=== PATIENT | female | born 1950 | race Caucasian/White ===

== ENCOUNTER 2016-09-07 08:39 | Emergency (ER) | payer MEDICARE, OTHER ==
[2016-09-07 08:59] VITALS: TEMP 96; O2SAT 100
--- NOTE | 2016-09-07 09:15 | RAD ---
EXAM DESCRIPTION: XR WRIST 3 OR MORE VIEWS CLINICAL HISTORY: fall, pain COMPARISON: None Available. TECHNIQUE: AP, LATERAL, AND OBLIQUE FINDINGS: Degenerative changes are observed in the metacarpal-carpal articulation of the 1st digit. Intercarpal arthritis is observed. Subchondral cyst formation is observed in the scaphoid. Radiocarpal arthritis is observed. radioulnar arthritis is also noted. An impacted fracture of the distal radial metaphysis is observed. There is some dorsal angulation of the distal fracture fragments. IMPRESSION: 1. An impacted dorsally angulated fracture of the distal radius is observed. 2. Severe degenerative changes are observed throughout the wrist. Electronically signed by: Erik Resendiz MD 09/07/2016 09:14
--- NOTE | 2016-09-07 09:38 | ED.PDOC ---
History of Present Illness - General Chief Complaint: Upper Extremity Injury Stated Complaint: left wrist pain Time Seen by Provider: 09/07/16 09:25 Source: patient, RN notes reviewed, Vital Signs reviewed Exam Limitations: no limitations - History of Present Illness Initial Comments: Patient is a 66 y/o female who was using a band to strengthen her left shoulder that was fractured in 03/2016. The band was not around door well, and she fell on her left side hurting her wrist and hip. Timing/Duration: 1 hour Severity: severe Improving Factors: immobilization Worsening Factors: movement Associated Symptoms: denies symptoms Allergies/Adverse Reactions: Allergies Morphine Adverse Reaction (Verified 09/07/16 09:00) causes heart racing Home Medications: Ambulatory Orders Alprazolam [Xanax] 0.5 mg PO QID #0 10/14/12 Kskzeqz-Zgvnbgeeuautt-Rusrfzou [Excedrin Migraine] 2 ea PO DAILY #0 10/14/12 Hubbsktzkw-Bjmhhpn-Spqkkjxy [Butal/ASA/Caff] 2 tab PO Q4H PRN #0 10/14/12 Dicyclomine HCl 20 mg PO TID #0 10/14/12 Estropipate [Ogen] 3 mg PO DAILY #0 10/14/12 Fluticasone-Salmeterol [Advair Diskus] 1 puff IN BID #0 10/14/12 Glucosamine-Chondroitin [Osteo Bi-Flex Regular Str] 2 tab PO DAILY #0 10/14/12 Paroxetine HCl [Paxil] 40 mg PO HS #0 10/14/12 Sumatriptan Succinate [Imitrex] 100 mg PO PRN PRN #0 10/14/12 Trazodone HCl 100 mg PO HS #0 10/14/12 Albuterol Sulfate Nebs [Proventil Nebs] 2.5 mg INH DAILY 04/05/16 Amitriptyline HCl 50 mg PO HS 04/05/16 Budesonide (Inhalation) [Budesonide] 0.25 mg IN PRN 04/05/16 Flunisolide (Nasal) [Flunisolide] 0.025 % NA DAILY 04/05/16 Folic Acid 5 mg PO DAILY 04/05/16 Hydrochlorothiazide 25 mg PO DAILY 04/05/16 Methotrexate Sodium [Methotrexate] 20 mg PO DAILY 04/05/16 Potassium 99 mg PO DAILY 04/05/16 Sucralfate Tab [Carafate Tab] 1 gm PO DAILY 04/05/16 Tramadol HCl 50 mg PO Q6H PRN #15 tab 09/07/16 Review of Systems - Review of Systems Constitutional: States: no symptoms reported EENTM: States: no symptoms reported Respiratory: States: no symptoms reported Cardiology: States: no symptoms reported Gastrointestinal/Abdominal: States: no symptoms reported Genitourinary: States: no symptoms reported Musculoskeletal: States: joint pain, joint swelling Skin: States: no symptoms reported Neurological: States: no symptoms reported Endocrine: States: no symptoms reported Hematologic/Lymphatic: States: no symptoms reported All other Systems: Reviewed and Negative Past Medical History (General) - Patient Medical History Hx Seizures: No Hx Stroke: No Hx Asthma: Yes Hx of COPD: No Hx Cardiac Disorders: No Hx Congestive Heart Failure: No Hx Pacemaker: No Hx Hypertension: Yes Hx Diabetes: No Hx MRSA: No Surgical History: other - Vaccination History Hx Tetanus, Diphtheria Vaccination: - unknonw Hx Influenza Vaccination: Yes Hx Pneumococcal Vaccination: Yes - Social History Hx Tobacco Use: No Hx Alcohol Use: No Hx Substance Use: No Hx Physical Abuse: No Hx Emotional Abuse: No - Activities of Daily Living Hospice Agency (if applicable):: None - Female History Patient is a Female of Child Bearing Age (10 -59 yrs old): No Patient : No Family Medical History - Family History Mother Family History: No Known Physical Exam - Physical Exam General Appearance: Alert, Frail, Obvious distress Eye Exam: bilateral normal Ears, Nose, Throat: normal ENT inspection Extremity: pelvis stable, other - L wrist-tender to palpation, mild swelling, decreased ROM. L hip-tender at greater trochanter. Neurologic: alert, normal mood/affect, oriented x 3 Skin Exam: normal color, warm/dry Progress - Results/Orders Results/Orders: 09/07/16 08:46 Temperature 96.0 F L Pulse Rate [ 61 pulse ox] Respiratory 18 Rate Blood Pressure 156/82 [Right Arm] O2 Sat by Pulse 100 Oximetry - EKG/XRAY/CT XRAY: Wrist - L Xray Comments: Angulated fracture of distal radius. CT Ordered: No CT Interpretation Call Back: No - Consult/PCP Time Called: 11:00 Consult/PCP: Dr. Gant Consult Reason/Comments: Splint wrist, follow up in his office tomorrow. - Additional EKG/XRAY/Consults XRAY #2: hip Comments: Left - no fracture Departure - Departure Clinical Impression: Distal radial fracture Qualifiers: Encounter type: initial encounter Fracture type: closed Fracture morphology: unspecified fracture morphology Laterality: left Qualifier Code: (S52.502A) Unspecified fracture of the lower end of left radius, initial encounter for closed fracture Fall from standing Qualifiers: Encounter type: initial encounter Qualifier Code: (W19.XXXA) Unspecified fall, initial encounter Time of Disposition: 11:06 Disposition: Discharge to Home or Self Care Condition: Fair Departure Forms: ED Discharge - Pt. Copy, Patient Portal Self Enrollment Instructions: Wrist Fracture, DI for Wrist Fracture Diet: resume usual diet Referrals: Mauricio Gant MD [Active Staff] - 09/08/16 9:00 am Prescriptions: Tramadol HCl 50 mg PO Q6H PRN #15 tab PRN Reason: Pain Home Medications: Ambulatory Orders Alprazolam [Xanax] 0.5 mg PO QID #0 10/14/12 Unrddpp-Pebvobiasujgz-Dlbvsvle [Excedrin Migraine] 2 ea PO DAILY #0 10/14/12 Zwsnzpwmpd-Yeoiquj-Wczfioml [Butal/ASA/Caff] 2 tab PO Q4H PRN #0 10/14/12 Dicyclomine HCl 20 mg PO TID #0 10/14/12 Estropipate [Ogen] 3 mg PO DAILY #0 10/14/12 Fluticasone-Salmeterol [Advair Diskus] 1 puff IN BID #0 10/14/12 Glucosamine-Chondroitin [Osteo Bi-Flex Regular Str] 2 tab PO DAILY #0 10/14/12 Paroxetine HCl [Paxil] 40 mg PO HS #0 10/14/12 Sumatriptan Succinate [Imitrex] 100 mg PO PRN PRN #0 10/14/12 Trazodone HCl 100 mg PO HS #0 10/14/12 Albuterol Sulfate Nebs [Proventil Nebs] 2.5 mg INH DAILY 04/05/16 Amitriptyline HCl 50 mg PO HS 04/05/16 Budesonide (Inhalation) [Budesonide] 0.25 mg IN PRN 04/05/16 Flunisolide (Nasal) [Flunisolide] 0.025 % NA DAILY 04/05/16 Folic Acid 5 mg PO DAILY 04/05/16 Hydrochlorothiazide 25 mg PO DAILY 04/05/16 Methotrexate Sodium [Methotrexate] 20 mg PO DAILY 04/05/16 Potassium 99 mg PO DAILY 04/05/16 Sucralfate Tab [Carafate Tab] 1 gm PO DAILY 04/05/16 Tramadol HCl 50 mg PO Q6H PRN #15 tab 09/07/16 Additional Instructions: Follow up in ED if symptoms worsen.
--- NOTE | 2016-09-07 10:08 | RAD ---
EXAM DESCRIPTION: XR HIP 2 OR MORE VIEWS CLINICAL HISTORY: 66 y/o F, L hip pain s/p fall - osteoporosis COMPARISON: None TECHNIQUE: AP and frog leg lateral views of the left hip FINDINGS: Two-view left hip shows no fracture or bone lesion. There is no joint space abnormality observed. IMPRESSION: 1. Normal study Electronically signed by: Tree Conteh MD 09/07/2016 10:07
[2016-09-07] MEDS ORDERED: fentaNYL CITRATE INJ 50 MCG/ML AMP IM ONE (11:01)
[2016-09-07 11:50] VITALS: BP 144/65
== END 2016-09-07 11:45 | disposition home or self-care (01) ==
LOC: ER 08:39
DX: S52.502A Unspecified fracture of the lower end of left radius, initial encounter for closed fracture (principal); J45.909 Unspecified asthma, uncomplicated; I10 Essential (primary) hypertension; Z79.82 Long term (current) use of aspirin; Z88.6 Allergy status to analgesic agent; Z79.899 Other long term (current) drug therapy; W01.0XXA Fall on same level from slipping, tripping and stumbling without subsequent striking against object, initial encounter; Y93.B9 Activity, other involving muscle strengthening exercises
CPT/HCPCS: 73110; 73502; J3010

== ENCOUNTER → 2016-09-08 | Outpatient (CLI) | payer MEDICARE, OTHER ==
--- NOTE | 2016-09-08 11:44 | RAD ---
EXAM DESCRIPTION: XR WRIST 3 OR MORE VIEWS CLINICAL HISTORY: 66 y/o ,F, CLOSED FX OF DISTAL LEFT WRIST COMPARISON: September 07, 2016 IMPRESSION: Three views left wrist. Comminuted distal radial fracture again noted. The fracture fragments are appropriately aligned. Degenerative change of the radiocarpal joint and thumb base. Electronically signed by: Bienvenido Lechuga MD 09/08/2016 11:42
== END ==
LOC: RAD 10:12
PROVIDERS: ATTEND Orthopaedic Surgery
DX: S52.502A Unspecified fracture of the lower end of left radius, initial encounter for closed fracture (principal)

== ENCOUNTER → 2016-09-11 | Outpatient (CLI) | payer MEDICARE, OTHER ==
--- NOTE | 2016-09-11 09:36 | RAD ---
EXAM DESCRIPTION: XR WRIST 3 OR MORE VIEWS CLINICAL HISTORY: 66 y/o ,F, CLOSED FRACTURE OF DISTAL END RADIUS COMPARISON: September 08, 2016 IMPRESSION: Three views of the left wrist. Distal radial metaphyseal fracture again noted. Fracture fragments are in stable alignment. Degenerative change of the base of thumb noted. Electronically signed by: Bienvenido Lechuga MD 09/11/2016 09:34
== END ==
LOC: RAD 08:50
PROVIDERS: ATTEND Orthopaedic Surgery
DX: S52.502A Unspecified fracture of the lower end of left radius, initial encounter for closed fracture (principal)

== ENCOUNTER → 2016-09-15 | Outpatient (CLI) | payer MEDICARE, OTHER ==
--- NOTE | 2016-09-26 17:14 | RAD ---
EXAM DESCRIPTION: XR WRIST 3 OR MORE VIEWS CLINICAL HISTORY: 66 y/o ,F, FX COMPARISON: September 11, 2016 in September 07, 2016 IMPRESSION: Three views of the left wrist. Distal radial metaphyseal fracture again noted. The fracture line is less apparent on today's study compatible with increased healing. Fracture fragments are in stable alignment. Degenerative change of the base of thumb and radiocarpal joint noted. Electronically signed by: Bienvenido Lechuga MD 09/15/2016 10:54
== END | disposition home or self-care (01) ==
LOC: RAD 08:43
PROVIDERS: ATTEND Orthopaedic Surgery
DX: S52.502A Unspecified fracture of the lower end of left radius, initial encounter for closed fracture (principal)

== ENCOUNTER → 2016-09-28 | Outpatient (CLI) | payer MEDICARE, OTHER ==
--- NOTE | 2016-09-28 09:29 | RAD ---
EXAM DESCRIPTION: XR WRIST 3 OR MORE VIEWS CLINICAL HISTORY: 66 y/o ,F, CLOSED FX OF DISTAL END OF RADIUS COMPARISON: September 15, 2016 IMPRESSION: The sagittally oriented fracture through the ulnar aspect of the distal radial epiphysis is again noted. The fracture extends into the radiocarpal joint. Increased callus formation about the fracture site is noted compatible with mild increased healing. Degenerative change of the radiocarpal joint noted Electronically signed by: Bienvenido Lechuga MD 09/28/2016 09:29
--- NOTE | 2016-09-28 10:38 | RAD ---
EXAM DESCRIPTION: XR WRIST 3 OR MORE VIEWS CLINICAL HISTORY: 66 y/o ,F, POST CAST REMOVAL COMPARISON: Radiograph from same day. IMPRESSION: Three views of left wrist after cast removal. The sagittally oriented lucency through the medial aspect of the distal radial epiphysis with extension into the articular surface of the radiocarpal joint is stable in appearance. Degenerative change of the radiocarpal joint, ulnocarpal joint and thumb base noted Electronically signed by: Bienvenido Lechuga MD 09/28/2016 10:36
== END | disposition home or self-care (01) ==
LOC: RAD 08:39
PROVIDERS: ATTEND Orthopaedic Surgery
DX: S52.502A Unspecified fracture of the lower end of left radius, initial encounter for closed fracture (principal)

== ENCOUNTER → 2016-10-05 | Outpatient (CLI) | payer MEDICARE, OTHER ==
--- NOTE | 2016-10-06 11:33 | RAD ---
Frontal, lateral, and oblique views of the left wrist. Indication:FRACTURE OF LOWER END OF RADIUS Comparison: September 28, 2016. Impression: Comminuted fracture of the distal radial metaphysis and epiphysis with central/ ulnar intra-articular extension is redemonstrated with stable fracture alignment. The fracture is ununited with no significant callus formation. Slight dorsal angulation distal fracture fragments. Positive ulnar variance with moderate to severe distal radial joint osteoarthritis and changes of ulnar impaction. Cystic change scaphoid waist. Moderate osteoarthritis 1st CMC joint. Osteopenia. If this is a new finding, DEXA scan recommended as well as evaluation for possible osteoporosis treatment. Electronically signed by: Jonathan Garza MD 10/06/2016 11:31
== END ==
LOC: RAD 08:00
PROVIDERS: ATTEND Orthopaedic Surgery
DX: S52.502D Unspecified fracture of the lower end of left radius, subsequent encounter for closed fracture with routine healing (principal)

== ENCOUNTER → 2016-10-19 | Outpatient (CLI) | payer MEDICARE, OTHER ==
--- NOTE | 2016-10-19 11:19 | RAD ---
EXAM DESCRIPTION: Wrist,Left 3 Views CLINICAL HISTORY: 66 yearsFemale, FX DISTAL END OF RADIUS COMPARISON: October 05, 2016 IMPRESSION: Increased sclerosis about the distal radial fracture compatible with subtle, but increased healing. Alignment is stable. Degenerative change of the radiocarpal and ulnocarpal joints with subchondral cystic changes noted within the distal ulna and scaphoid. Significant degenerative change of the base of thumb. Electronically signed by: Bienvenido Lechuga MD 10/19/2016 11:16 AM SHAREPOINT ADMINISTRATOR
== END | disposition home or self-care (01) ==
LOC: RAD 09:37
PROVIDERS: ATTEND Orthopaedic Surgery
DX: S52.502D Unspecified fracture of the lower end of left radius, subsequent encounter for closed fracture with routine healing (principal)

== ENCOUNTER → 2016-11-09 | Outpatient (CLI) | payer MEDICARE, OTHER ==
--- NOTE | 2016-11-09 16:34 | RAD ---
EXAM DESCRIPTION: Wrist,Left 3 Views CLINICAL HISTORY: 66 years Female, FX IMPRESSION: Today's exam was compared to October 19, 2016. The sclerotic impaction fracture of the distal radius is again noted. The fracture line is slightly less apparent which is compatible with continued healing. Largest cyst noted within the mid pole of the scaphoid, unchanged. Severe degenerative change of the base of thumb, unchanged. Osteopenia. Electronically signed by: Bienvenido Lechuga MD 11/09/2016 4:34 PM CDT
== END | disposition home or self-care (01) ==
LOC: RAD 09:20
PROVIDERS: ATTEND Orthopaedic Surgery
DX: S52.502D Unspecified fracture of the lower end of left radius, subsequent encounter for closed fracture with routine healing (principal)

== ENCOUNTER → 2017-02-28 | Outpatient (CLI) | payer MEDICARE, OTHER ==
--- NOTE | 2017-02-28 11:29 | MAM ---
EXAM DESCRIPTION: 3D Diagnostic, Bilateral CLINICAL HISTORY: 67 yearsFemale6 MONTH FOLLOW UP. Postmenopausal. Right breast cyst aspiration. Cyst and nodule left breast on the prior diagnostic workup. COMPARISON: Left breast targeted ultrasound on this visit. Left breast targeted ultrasound and digital diagnostic evaluation 05/25/2016. Bilateral digital screening examination 05/27/2016. Reports from prior examinations also reviewed. TECHNIQUE: Bilateral digital CC and MLO and LM projection full-field images, 3-D tomosynthesis digital mammographic technique. Also bilateral synthesized CC/ MLO/ LM full-field images. CAD not utilized. FINDINGS: The breast parenchymal density pattern is: Extremely dense breast tissue, which lowers the sensitivity of mammography. No skin thickening or nipple retraction in the upper outer quadrant where a nodule was previously suspected, no mammographic finding on incidental sinus stored, oblique image. Tiny calcification in the left breast. Possible nodule as a mammographic finding correlating with a cyst at the 100 clock position, 4 cm from the nipple, best seen on the CC 3-D image. Oval-shaped nodule with mostly well circumscribed borders and central radiolucency in the superior lateral, posterior third right breast on 3-D, tomosynthesis, approximately 1 cm diameter. Not seen on the CC 3-D tomosynthesis. Obscured by dense fibroglandular tissue on the study in March 2016. ULTRASOUND:Again noted in the 100 clock position of the left breast is a mostly anechoic cyst with slightly thickened guzman measuring 4 x 4 0.2 mm. Parallel orientation. Posterior enhancement features. Cyst is surrounded by heterogeneous fibroglandular tissues. No adjacent cysts or discrete solid mass. No parenchymal edema In the upper inner quadrant of the left breast at the 1000 clock position, is diffuse heterogeneous fat and fibroglandular tissues. No discrete or irregular solid mass, no cyst. No large calcifications or parenchymal edema.. No focal, stellate mass or density, focal asymmetry , and no suspicious microcalcifications bilaterally. IMPRESSION: BI-RADS CATEGORY: 3 - PROBABLY BENIGN FINDING - Short Interval Follow-Up Suggested FOLLOW-UP: Short-interval (6-month) follow-up diagnostic digital left breast mammography and surveillance breast ultrasound. There is continued clinical concern or patient concern, consider follow-up bilateral breast MRI scan with gadolinium IV contrast. Written communication explaining the results and follow-up will be mailed to the patient and referring care provider. Electronically signed by: Adriel Mae MD 02/28/2017 11:28 AM CDT Workstation: [id number]
--- NOTE | 2017-02-28 12:10 | US ---
EXAM DESCRIPTION: Breast, left CLINICAL HISTORY: 67 yearsFemale6 MONTH FOLLOW UP COMPARISON: Diagnostic digital mammogram of the left breast on this visit. Targeted left breast ultrasound 05/15/2016. TECHNIQUE: Transcutaneous scanning of the upper inner and outer quadrants of the left breast utilizing two-dimensional and Doppler modes. Scanning performed by the color technician and Dr. Mae. FINDINGS: Again noted in the 100 clock position of the left breast is a mostly anechoic cyst with slightly thickened guzman measuring 4 x 4 0.2 mm. Parallel orientation. Posterior enhancement features. Cyst is surrounded by heterogeneous fibroglandular tissues. No adjacent cysts or discrete solid mass. No parenchymal edema. In the upper inner quadrant of the left breast at the 1000 clock position, is diffuse heterogeneous fat and fibroglandular tissues. No discrete or irregular solid mass, no cyst. No large calcifications or parenchymal edema. IMPRESSION: BI-RADS CATEGORY: 3 - PROBABLY BENIGN FINDING - Short Interval Follow-Up Suggested Please refer to bilateral digital diagnostic examination with 3-D tomosynthesis on this visit. Written communication explaining the results and follow-up will be mailed to the patient and referring care provider. The findings and the follow-up plan were reviewed in person with the patient after the examination. Electronically signed by: Adriel Mae MD 02/28/2017 12:09 PM CDT Workstation: [id number]
== END ==
LOC: MAMMO 08:25
PROVIDERS: ATTEND Family Medicine
DX: R92.8 Other abnormal and inconclusive findings on diagnostic imaging of breast (principal)
CPT/HCPCS: 76641; G0279

== ENCOUNTER → 2017-03-28 | Outpatient (CLI) | payer MEDICARE, OTHER | LOC: GMAH 16:30 | PROVIDERS: ATTEND Family Medicine | DX: N30.00 Acute cystitis without hematuria (principal) ==

== ENCOUNTER 2017-10-26 12:56 | Inpatient (IN) | payer MEDICARE, OTHER ==
--- NOTE | 2017-10-26 12:57 | HP ---
SUPERVISING PHYSICIAN: Charles Hernández M.D. CHIEF COMPLAINT: Shortness of breath. HISTORY OF PRESENT ILLNESS: This is a 67 year-old female patient who has been seen in her primary care physician's office approximately 4 times in the last 6 weeks due to an exacerbation of her asthma. She has been on p.o. antibiotics times 2 and p.o. steroids times 3, and has progressively worsened over the last 6 days. She also had increased use of her nebulizer treatments as well as continued use of her routine Advair. She was seen in the office today and her oxygen saturations were at 83%. She was extremely fatigued after her respiratory rate was 24, blood pressure 172/84 and pulse rate 86. She was afebrile. Chest x-ray was essentially clear with normal heart size. CBC in the office showed a WBC of 10.6 with hemoglobin 11.9, hematocrit 35.4, neutrophils 72.[address] Diallo called me for admission to the hospital. PAST MEDICAL HISTORY: 1. Asthma. 2. Seasonal allergies. 3. Spastic colon. 4. Osteoarthritis. 5. Gastroesophageal reflux disease. 6. Rheumatoid arthritis. PAST SURGICAL HISTORY: 1. Hysterectomy. 2. Bladder suspension. 3. Bilateral knee replacements. 4. Bilateral rotator cuff repair surgeries. OUTPATIENT MEDICATIONS: Per the EMR and awaiting verification. ALLERGIES: MORPHINE SULFATE. SHE DOES HAVE AN ADVERSE REACTION TO CODEINE IT MAKES HER "CRAZY." FAMILY HISTORY: Positive for myocardial infarction, cancer and cerebral aneurysm. SOCIAL HISTORY: The patient is . She lives in [place]. She denies any tobacco, ETOH or illicit drug use. REVIEW OF SYSTEMS: GENERAL: Positive for fatigue. Negative for chills or fever or weight changes. RESPIRATORY: Positive for dyspnea and cough. Negative for wheezing. CARDIOVASCULAR: Negative for chest pains, palpitations or tachycardia. GASTROINTESTINAL: Negative for constipation, diarrhea, nausea or vomiting. MUSCULOSKELETAL: Positive for chronic back pain and chronic neck pain. GENITOURINARY: Negative for hematuria, nocturia or dysuria. INTEGUMENT: Negative for rashes or lesions. NEUROLOGIC: Negative for headaches, seizures or dizziness. PHYSICAL EXAMINATION: VITAL SIGNS: She is afebrile, heart rate 71, blood pressure 139/84, respiratory rate 17, O2 sat is 100% on room air, but she was tachypneic at her physician's office with a respiratory rate of 24 and she was hypoxic with an O2 sat of 83%. GENERAL: This is a 67 year-old female patient who is sitting up in her hospital bed. She is in mild respiratory distress. HEENT: Normocephalic and atraumatic. Pupils are equal and reactive. Oropharynx is clear. NECK: Supple without mass. There is no jugular venous distention. RESPIRATORY: Diminished breath sounds throughout otherwise no rhonchi or wheezing noted. She is tachypneic and speaks in short phrases of 3 to 4 words at a time. CARDIOVASCULAR: Regular rate and rhythm. GASTROINTESTINAL: Abdomen is soft, nondistended, non-tender. Bowel sounds are positive. EXTREMITIES: No cyanosis, clubbing or edema. NEUROLOGIC: She is awake, alert and oriented times three. LABORATORY: WBCs are 9.7 with hemoglobin 12.6, hematocrit 35.9. Urinalysis is essentially within normal limits. We are still awaiting her metabolic panel. All other labs and films are per the EMR as well as the History of Present Illness. ASSESSMENT: 1. Acute exacerbation of asthma with failed outpatient therapy. The patient has failed 2 rounds of oral antibiotics and 3 rounds of oral steroids. 2. Hypoxemic with an O2 saturation of 83% as well as tachypneic with respiratory rate of 24. 3. Gastroesophageal reflux disease. 4. Rheumatoid arthritis. 5. Anxiety. 6. Chronic neck and back pain. PLAN: We will admit the patient to the hospital. She will be started on routine and p.r.n. breathing treatments. I have also given her some IV steroids and we will taper those off as she clinically improves. Rocephin has been started as antibiotic therapy. I will give her 1 liter of fluids, start her on some Mucinex as well as give her Tramadol for pain. Her home medications will be restarted. I will order routine labs for in the morning. I also have done sputum and blood cultures to rule out any infectious process. She will have good pulmonary hygiene. I have encouraged frequent ambulation in the halls as tolerated. We will continue to monitor the patient closely and follow as needed. Dr. Hernández is the collaborating physician available for consultation. #[id number] [facility] SYSTEMAshley
[2017-10-26] MEDS ORDERED: SODIUM CHLORIDE 0.9% (FLUSH) 10 ML SYG IV PRN (12:59)
[2017-10-26] MEDS ORDERED: IV SET AND CAP CHANGE INJ INJ SCH (13:00)
[2017-10-26] MEDS: ALBUTEROL SULFATE 2.5 MG/3 ML VIAL NEB SCH ×4 (13:01→20:15)
[2017-10-26] MEDS ORDERED: ALBUTEROL SULFATE 2.5 MG/3 ML VIAL NEB ONE (13:04)
[2017-10-26] MEDS ORDERED: methylPREDNISolone SODIUM SUC 125 MG/2 ML VIAL IV ONE (13:05)
[2017-10-26] MEDS ORDERED: PANTOPRAZOLE SODIUM IV 40 MG VIAL IV SCH (13:30)
[2017-10-26] MEDS ORDERED: cefTRIAXone SODIUM 1 GM VIAL ONE (14:02)
[2017-10-26] MEDS ORDERED: SODIUM CHL 0.9% 50ML MIN-BAG+ 50 ML IVPB ONE (14:02)
[2017-10-26] MEDS: cefTRIAXone SODIUM 1 GM in SODIUM CHL 0.9% 50ML MIN-BAG+ 50 ML IVPB SCH (14:13)
[2017-10-26] MEDS ORDERED: traMADol HCL 50 MG TAB PO PRN (15:51)
[2017-10-26] MEDS ORDERED: SODIUM CHLORIDE 0.9% 1000ML 1,000 ML IVS ONE (15:53)
[2017-10-26] MEDS ORDERED: ALPRAZolam 0.5 MG TAB PO ONE (16:00)
[2017-10-26] MEDS ORDERED: TEMAZEPAM 15 MG CAP PO PRN (16:01)
[2017-10-26] MEDS ORDERED: BENZONATATE PERLES 100 MG CAP PO PRN (16:01)
[2017-10-26] MEDS ORDERED: PANTOPRAZOLE SODIUM TAB 40 MG PO ONE (19:27)
[2017-10-26] MEDS ORDERED: methylPREDNISolone SODIUM SUC 125 MG/2 ML VIAL ONE (19:27)
[2017-10-26] MEDS: guaiFENesin ER TAB 600 MG TAB PO SCH (20:08)
[2017-10-26] MEDS: SODIUM CHLORIDE 0.9% (FLUSH) 10 ML SYG IV SCH (20:09)
[2017-10-26] MEDS ORDERED: PARoxetine HCL 20 MG TAB PO ONE (20:53)
[2017-10-26] MEDS ORDERED: AMITRIPTYLINE HCL 25 MG TAB ONE (20:53)
[2017-10-26] MEDS: SUCRALFATE 1 GM TAB PO SCH (21:00)
[2017-10-26] MEDS: DICYCLOMINE HCL 20 MG TAB PO SCH (21:00)
[2017-10-26] MEDS ORDERED: AMITRIPTYLINE HCL 25 MG TAB PO SCH (21:00)
[2017-10-26] MEDS: PARoxetine HCL 20 MG TAB PO SCH (21:01)
[2017-10-26] MEDS: ALPRAZolam 0.5 MG TAB PO SCH (21:02)
[2017-10-26] MEDS: traZODone HCL 100 MG TAB PO SCH (21:02)
[2017-10-26] MEDS: FLUTICASONE/SALMETEROL 250/50 14 PUFF/17 GM INH INH SCH (22:19)
[2017-10-26] MEDS: ALBUTEROL SULFATE 2.5 MG/3 ML VIAL NEB PRN (23:00)
[2017-10-26] MEDS: methylPREDNISolone SODIUM SUC 125 MG/2 ML VIAL IV SCH (23:31)
[2017-10-27] MEDS: ALBUTEROL SULFATE 2.5 MG/3 ML VIAL NEB PRN (05:20)
[2017-10-27] MEDS: methylPREDNISolone SODIUM SUC 125 MG/2 ML VIAL IV SCH ×2 (05:48→11:46)
[2017-10-27] MEDS: PANTOPRAZOLE SODIUM TAB 40 MG PO SCH (06:03)
[2017-10-27] MEDS: ALBUTEROL SULFATE 2.5 MG/3 ML VIAL NEB SCH ×4 (07:21→19:35)
[2017-10-27] MEDS: FLUTICASONE/SALMETEROL 250/50 14 PUFF/17 GM INH INH SCH ×3 (07:21→20:46)
--- NOTE | 2017-10-27 07:46 | RAD ---
EXAM: Two view chest. INDICATION: Asthma. COMPARISON: Chest x-ray: 03/30/2011. FINDINGS: Cardiac silhouette: Unremarkable. Rosy: Unremarkable. Lobar consolidation: None. Pleural effusion: None. Pneumothorax: None. Other: None. Bones: Unremarkable. Other: None. IMPRESSION: 1. No acute cardiopulmonary process. Electronically signed by: Mode Figueroa MD 10/27/2017 7:45 AM CDT Workstation: [id number]
[2017-10-27] MEDS: guaiFENesin ER TAB 600 MG TAB PO SCH ×2 (08:38→21:02)
[2017-10-27] MEDS: SUCRALFATE 1 GM TAB PO SCH ×3 (08:38→21:00)
[2017-10-27] MEDS: ALPRAZolam 0.5 MG TAB PO SCH ×4 (08:38→21:05)
[2017-10-27] MEDS: DICYCLOMINE HCL 20 MG TAB PO SCH ×2 (08:38→21:00)
[2017-10-27] MEDS: hydroCHLOROthiazide 25 MG TAB PO SCH (08:38)
[2017-10-27] MEDS: SODIUM CHLORIDE 0.9% (FLUSH) 10 ML SYG IV SCH ×2 (08:39→21:02)
[2017-10-27] MEDS: ESTROPIPATE PO SCH (09:02)
[2017-10-27] MEDS ORDERED: ALPRAZolam 0.25 MG TAB PO PRN (09:09)
[2017-10-27] MEDS ORDERED: ASPIRIN/ACETAMINOPHEN/CAFFEINE 1 EA TAB PO PRN (11:34)
[2017-10-27] MEDS: BUDESONIDE NEBS 0.25 MG/2 ML INH INH SCH ×2 (11:37→19:35)
[2017-10-27] MEDS ORDERED: cefTRIAXone SODIUM 1 GM VIAL ONE (12:35)
[2017-10-27] MEDS ORDERED: SODIUM CHL 0.9% 50ML MIN-BAG+ 50 ML IVPB ONE (12:35)
[2017-10-27] MEDS: ENOXAPARIN SODIUM 40 MG/0.4 ML SYG SUBCU SCH (13:30)
[2017-10-27] MEDS: cefTRIAXone SODIUM 1 GM in SODIUM CHL 0.9% 50ML MIN-BAG+ 50 ML IVPB SCH (13:33)
--- NOTE | 2017-10-27 14:35 | PN ---
DATE: 10/27/17 SUPERVISING PHYSICIAN: Charles Hernández M.D. SUBJECTIVE: The patient is sitting up in her hospital bed doing a breathing treatment. She continues to feel very short of breath, although she is starting to cough up some thick sputum. She did not sleep very well last night but she had given the wrong dosages of her home medications and those have been corrected. OBJECTIVE: VITAL SIGNS: She is afebrile, heart rate 77, blood pressure 115.61, respiratory rate 17, O2 sat is 100% on 2 liters nasal cannula. RESPIRATORY: A few scattered rhonchi throughout, somewhat diminished at the bases. She does have some expiratory wheezing in the right upper lung field. CARDIAC: Regular rate and rhythm. GASTROINTESTINAL: Abdomen is soft, nondistended, non-tender. Bowel sounds are positive. NEUROLOGIC: She is awake, alert and oriented times three. LABORATORY: Sodium 134, potassium 3.8, chloride 100, carbon dioxide 24, BUN 14 , creatinine 0.42, glucose is slightly elevated at 156. Serum osmolality 271.9. Liver enzymes are within normal limits. WBCs are 7.5 with hemoglobin 12.7, hematocrit 36.8, platelets 343, neutrophils 93.7. Preliminary sputum culture shows normal tressa at 24 hours. Preliminary blood cultures are negative to date. RADIOLOGY: Chest x-ray shows no acute cardiopulmonary processes. All other labs and films have been reviewed via the EMR. ASSESSMENT: 1. Acute exacerbation of asthma with failed outpatient therapy. The patient has failed 2 rounds of oral antibiotics and 3 rounds of oral steroids. 2. Hypoxemic with an O2 saturation of 83% as well as tachypneic with respiratory rate of 24. 3. Gastroesophageal reflux disease. 4. Rheumatoid arthritis. 5. Anxiety. 6. Chronic neck and back pain. PLAN: We will continue present supportive care. Will hold on lab for in the morning as that has mostly stabilized. I am slowly titrating down her IV steroids. She will continue on her Rocephin and we will monitor her cultures. I have added Lovenox for DVT prophylaxis. We will watch her closely clinically as she is starting to walk in the hallways. She is slowly improving at this time. Will monitor closely and follow as needed. Dr. Hernández is the collaborating physician available for consultation. #[id number] [facility]
[2017-10-27] MEDS: methylPREDNISolone SODIUM SUC 40 MG/ML VIAL IV SCH (17:08)
[2017-10-27] MEDS: AMITRIPTYLINE HCL 25 MG TAB PO SCH (21:01)
[2017-10-27] MEDS: traZODone HCL 100 MG TAB PO SCH (21:01)
[2017-10-27] MEDS: PARoxetine HCL 20 MG TAB PO SCH (21:01)
[2017-10-28] MEDS: methylPREDNISolone SODIUM SUC 40 MG/ML VIAL IV SCH ×2 (00:24→05:54)
[2017-10-28] MEDS: PANTOPRAZOLE SODIUM TAB 40 MG PO SCH (05:55)
[2017-10-28] MEDS: ALBUTEROL SULFATE 2.5 MG/3 ML VIAL NEB SCH ×4 (08:03→20:16)
[2017-10-28] MEDS: BUDESONIDE NEBS 0.25 MG/2 ML INH INH SCH ×2 (08:03→20:16)
[2017-10-28] MEDS: FLUTICASONE/SALMETEROL 250/50 14 PUFF/17 GM INH INH SCH ×2 (08:03→20:16)
[2017-10-28] MEDS: DICYCLOMINE HCL 20 MG TAB PO SCH ×2 (08:10→20:54)
[2017-10-28] MEDS: hydroCHLOROthiazide 25 MG TAB PO SCH (08:10)
[2017-10-28] MEDS: ALPRAZolam 0.5 MG TAB PO SCH ×4 (08:10→20:54)
[2017-10-28] MEDS: SODIUM CHLORIDE 0.9% (FLUSH) 10 ML SYG IV SCH ×2 (08:10→21:06)
[2017-10-28] MEDS: SUCRALFATE 1 GM TAB PO SCH ×3 (08:10→20:53)
[2017-10-28] MEDS: guaiFENesin ER TAB 600 MG TAB PO SCH (08:10)
[2017-10-28] MEDS: ENOXAPARIN SODIUM 40 MG/0.4 ML SYG SUBCU SCH (08:10)
[2017-10-28] MEDS: ESTROPIPATE PO SCH (08:40)
[2017-10-28] MEDS: guaiFENesin 100 MG/5 ML 10 ML UD PO SCH ×2 (09:33→20:53)
[2017-10-28] MEDS ORDERED: cefTRIAXone SODIUM 1 GM VIAL ONE (10:33)
[2017-10-28] MEDS ORDERED: SODIUM CHL 0.9% 50ML MIN-BAG+ 50 ML IVPB ONE (10:33)
[2017-10-28] MEDS ORDERED: FLUCONAZOLE 100 MG TAB PO ONE (10:54)
[2017-10-28] MEDS: SENNOSIDES 8.6 MG TAB PO SCH ×2 (11:15→21:05)
--- NOTE | 2017-10-28 12:17 | PN ---
DATE: 10/28/17 SUPERVISING PHYSICIAN: Charles Hernández M.D. SUBJECTIVE: The patient is sitting up in her chair in her hospital room. Continues complaints of mild shortness of breath but she has walked in the halls and it is improving. She also complained of some tiredness which she knows that it is most likely due to the steroids. She also said that she is somewhat slightly constipated and requested Senokot. Otherwise denies chest pain, nausea, vomiting or wheezing. OBJECTIVE: VITAL SIGNS: She is afebrile, heart rate 70, blood pressure 120/71, respiratory rate 20, O2 sat is 99% on room air. RESPIRATORY: Essentially clear to auscultation bilaterally. No wheezing or rhonchi noted. CARDIAC: Regular rate and rhythm. GASTROINTESTINAL: Abdomen is soft, nondistended, non-tender. Bowel sounds are positive. NEUROLOGIC: She is awake, alert and oriented times three. LABORATORY: WBCs are 7.5 with hemoglobin 12.7, hematocrit 36.8, platelet count 342, neutrophils 93.7. Sodium 134, potassium 3.8, chloride 100, carbon dioxide 24, BUN 14, creatinine 0.42. Serum osmolality 271.9, random blood sugar 156. Final sputum culture shows light growth of budding yeast. Preliminary blood cultures show no growth after 24 hours. All other labs and films have been reviewed via the EMR. ASSESSMENT: 1. Acute exacerbation of asthma with failed outpatient therapy. The patient has failed 2 rounds of oral antibiotics and 3 rounds of oral steroids. 2. Hypoxemic with an O2 saturation of 83% as well as tachypnea with respiratory rate of 24 at her physician's office on date of admission. 3. Question of Candidiasis in the sputum with sputum culture showing a light growth of budding yeast. 4. Gastroesophageal reflux disease. 5. Rheumatoid arthritis. 6. Anxiety. 7. Chronic neck and back pain. PLAN: We will continue present supportive care. I have ordered Senokot for her constipation as well as discontinued her IV steroids. She will start on oral prednisone in the morning. I have given her 1 dose of Diflucan. I will hold on lab and chest x-ray as they have stabilized. If she clinically improves , she can be discharged tomorrow or the next day. Otherwise we will continue to monitor her closely and followup as needed. Dr. Hernández is the collaborating physician available for consultation. [facility][id number] [facility]
[2017-10-28] MEDS: cefTRIAXone SODIUM 1 GM in SODIUM CHL 0.9% 50ML MIN-BAG+ 50 ML IVPB SCH (13:22)
[2017-10-28] MEDS: AMITRIPTYLINE HCL 25 MG TAB PO SCH (20:53)
[2017-10-28] MEDS: traZODone HCL 100 MG TAB PO SCH (20:53)
[2017-10-28] MEDS: PARoxetine HCL 20 MG TAB PO SCH (20:54)
[2017-10-29] MEDS: ALBUTEROL SULFATE 2.5 MG/3 ML VIAL NEB PRN (04:30)
[2017-10-29] MEDS: PANTOPRAZOLE SODIUM TAB 40 MG PO SCH (06:16)
[2017-10-29] MEDS: FLUTICASONE/SALMETEROL 250/50 14 PUFF/17 GM INH INH SCH (08:16)
[2017-10-29] MEDS: ALBUTEROL SULFATE 2.5 MG/3 ML VIAL NEB SCH (08:16)
[2017-10-29] MEDS: SUCRALFATE 1 GM TAB PO SCH (08:52)
[2017-10-29] MEDS: ALPRAZolam 0.5 MG TAB PO SCH (08:52)
[2017-10-29] MEDS: ENOXAPARIN SODIUM 40 MG/0.4 ML SYG SUBCU SCH (08:52)
[2017-10-29] MEDS: DICYCLOMINE HCL 20 MG TAB PO SCH (08:52)
[2017-10-29] MEDS: hydroCHLOROthiazide 25 MG TAB PO SCH (08:52)
[2017-10-29] MEDS: guaiFENesin 100 MG/5 ML 10 ML UD PO SCH (08:52)
[2017-10-29] MEDS: SENNOSIDES 8.6 MG TAB PO SCH (08:52)
[2017-10-29] MEDS: SODIUM CHLORIDE 0.9% (FLUSH) 10 ML SYG IV SCH (08:53)
[2017-10-29] MEDS ORDERED: predniSONE 20 MG TAB PO SCH (09:00)
[2017-10-29] MEDS: ESTROPIPATE PO SCH (09:06)
[2017-10-29] MEDS: BUDESONIDE NEBS 0.25 MG/2 ML INH INH SCH (09:41)
[2017-10-29 09:53] VITALS: BP 116/69; TEMP 96.7; O2SAT 100
--- NOTE | 2017-11-01 09:54 | DS ---
SUPERVISING PHYSICIAN: Blair Judge MD DISCHARGE DIAGNOSIS: 1. Acute exacerbation of asthma with failed outpatient therapy and 2 rounds of oral antibiotics and 3 rounds of oral steroids, showing improvement with treatment prior to discharge. 2. Hypoxemic with an O2 saturation of 83% as well as tachypnea with respiratory rate of 24 at her physician's office on date of admission, contributing to #1. 3. Question of Candidiasis in the sputum with sputum culture showing a light growth of budding yeast. 4. Gastroesophageal reflux disease. 5. Rheumatoid arthritis. 6. Anxiety. 7. Chronic neck and back pain. REASON FOR HOSPITALIZATION: Ms. Hamlin is a 67-year-old female patient who had been seen in her primary care physician's office approximately 4 times in the last 6 weeks due to an exacerbation of her asthma. She had been on p.o. antibiotics times 2 and p.o. steroids times 3, and has progressively worsened over the last 6 days prior to admission. She also had increased use of her nebulizer treatments as well as continued use of her routine Advair. She was seen in the office on date of admission and her oxygen saturations were at 83%. She was extremely fatigued after her respiratory rate was 24, blood pressure 172/84 and pulse rate 86. She was afebrile. Chest x-ray was essentially clear with normal heart size. CBC initially showed a white count of 10.4 after which she was admitted to the hospital for exacerbation of chronic obstructive pulmonary disease. LABORATORY: White count on admission was 9,700, at discharge was 7,500. Hemoglobin at discharge was 12.7, hematocrit 36.8, platelet count 342,000. Differential did show a left shift. Chemistries on admission showed potassium 3.7 and at discharge 3.8. Sodium was low at 130, but improved prior to discharge at 134. BUN 14, creatinine 0.42. Liver enzymes were all within normal limits. Urinalysis was within normal limits. MICROBIOLOGY: She had two sets of blood cultures that were negative at 5 days. Her final sputum culture report showed just light budding yeast. RADIOLOGY: Chest x-ray after admission per radiologic interpretation of two- view chest showed no acute cardiopulmonary process. HOSPITAL COURSE: Ms. Hamlin was admitted on 10/26/17 as noted above for exacerbation fo chronic obstructive pulmonary disease. She was started on aggressive pulmonary hygiene, given Solu-Medrol breathing treatments and parenteral antibiotics to include Rocephin. She was able to slowly taper off steroids and was showing good improvement prior to discharge and clinically improved well enough to continue with outpatient treatment plan. PLAN: Ms. Hamlin was discharged on 10/29/17 with instructions to have close clinical followup with her primary care provider, Dr. Diallo, as scheduled in 2 weeks or sooner. She was to resume home medications as instructed. She was to take new prescriptions as directed and avoid known allergens to prevent recurrence of exacerbation of her asthma. She was to return to the hospital for any concerning symptoms. At discharge, diet was usual diet. Activity increase as tolerated. MEDICATIONS AT DISCHARGE: 1. Tessalon Perles 100 mg tablets, she can take 200 mg 3 times a day as needed for cough. 2. Omnicef 300 mg twice daily for 7 days. 3. Medrol Dosepak tapering, take as directed. She was encouraged to call Dr. Diallo's should she have worsening of her symptoms and if need be, concerns for possibly needing a longer maintenance dose of her prednisone. At discharge, her condition was stable and improved. #[id number] [facility]
[2017-11-02] MEDS ORDERED: METHOTREXATE SODIUM 20 MG PO SCH (09:00)
== END 2017-10-29 11:19 | disposition home or self-care (01) | DRG 202 ==
LOC: OBSVTOIN 12:56 → MS 12:56
PROVIDERS: ADMIT Nurse Practitioner Acute Care; ATTEND Nurse Practitioner Family
DX: J45.901 Unspecified asthma with (acute) exacerbation (principal); B37.89 Other sites of candidiasis; J30.9 Allergic rhinitis, unspecified; M19.90 Unspecified osteoarthritis, unspecified site; K21.9 Gastro-esophageal reflux disease without esophagitis; M06.9 Rheumatoid arthritis, unspecified; K58.9 Irritable bowel syndrome, unspecified; Z96.653 Presence of artificial knee joint, bilateral; G89.29 Other chronic pain; M54.9 Dorsalgia, unspecified; M54.2 Cervicalgia; R09.02 Hypoxemia; F41.9 Anxiety disorder, unspecified; K59.00 Constipation, unspecified; Z88.5 Allergy status to narcotic agent

== ENCOUNTER 2017-11-08 13:50 | Inpatient (IN) | payer MEDICARE, OTHER ==
--- NOTE | 2017-11-08 14:14 | HP ---
HISTORY OF PRESENT ILLNESS: This 67 year-old white female is admitted to the hospital as a direct admission from Dr. Diallo's office. She has been getting steadily sicker for the last 2 months and has required at least one hospital stay as well as several clinic visits because of shortness of breath an asthma symptoms. Her last serious episode of illness related to her lungs was over 4 years ago. She was most recently in the hospital and was discharged after 3 days about 10 days ago. Subsequently she has been followed-up with repeat treatments with antibiotics and steroid tapering doses with slight improvement noted, but then worsening symptoms again. She usually gets worse when she returns home. Her last hospital stay dates from October 26 until October 29, or 10 days ago, and required IV corticosteroids and antibiotics and bronchodilator treatments until she was safe to be able to go home. She had documented hypoxia and required placing on home oxygen as well. She came back to the clinic today and Dr. Diallo ordered a chest x-ray which showed a left lower lobe infiltrate according to his interpretation and she was referred to the hospital for more vigorous treatment because of failed outpatient therapy. Her white count was fairly normal at 9,000. She is on home oxygen at 2 liters per minute. She had a saturation into the 80s when she ambulated on room air at her last hospital stay. No significant fever and chills. She has had some weight gain because of the corticosteroids. She has recently been up at the [facility] taking care of her mother and may have been exposed to other illnesses there in the waiting rooms, etc. She generally feels very tight in her breathing and no longer wheezes, but still feels terrible with a yellowish sputum being produced. She is admitted to the hospital to try to treat to prevent the illness from getting worse and having failed outpatient therapy requires parenteral antibiotics and corticosteroid administration with vigorous pulmonary hygiene and bronchodilation. PAST MEDICAL HISTORY: 1. Chronic asthma. 2. Seasonal allergies. 3. Irritable bowel syndrome. 4. Osteoarthritis. 5. Gastroesophageal reflux disease. 6. Rheumatoid arthritis. PAST SURGICAL HISTORY: 1. Hysterectomy. 2. Bladder suspension. 3. Both knee replacements. 4. Bilateral rotator cuff repair surgeries. CURRENT MEDICATIONS: Please refer to nurses' notes for a list of verified home medications. ALLERGIES: ATROVENT WHICH MADE HER BREATHING WORSE WELL GRASSES AND TREES WELL MORPHINE WHICH MAKES HER CRAZY. FAMILY HISTORY: Positive for heart disease, cancer and cerebral aneurysms. SOCIAL HISTORY: The patient is . She lives in [place]. She does not smoke and has worked in our hospital in the past, now retired. REVIEW OF SYSTEMS: She has gained some weight but no significant fever or chills. HEENT: No hearing or vision disturbances. LUNGS: Significant shortness of breath with chronic cough with yellow sputum. No hemoptysis. Tightness in her chest. CARDIOVASCULAR: No significant chest pains or palpitations. ABDOMEN: No nausea, vomiting or diarrhea, but her appetite has been decreased. GENITOURINARY: No burning. EXTREMITIES: Some slight edema present. NEUROLOGIC: No focal weakness but she generally feels a little weaker than usual because of the prolonged illness that she is experiencing. PHYSICAL EXAMINATION: VITAL SIGNS: Afebrile, pulse 72, blood pressure 129/76, respirations 22 and noticeably dyspneic with room air saturation 96%. Weight 62.8 kilos with bed scale. GENERAL: The patient is awake and alert. She is able to speak in sentences but does have some noticeable shortness of breath, having to stop in order to take a breath to complete the sentence. Coloration is fairly good. She is on oxygen at this time which she has been using at home as well. HEENT: Within normal limits. NECK: Supple. No carotid bruits. CHEST: Lungs have diminished breath sounds with some expiratory slowing. No significant wheezing evident, but is noticeably tight with inhalation and exhalation efforts. CARDIOVASCULAR: No significant palpitations. She does have a previously noted systolic murmur. ABDOMEN: Generally soft with some mild treating in the right lower quadrant. Good bowel tones. No organomegaly or masses noted. EXTREMITIES: Well formed with a trace of edema with SCDs in place. NEUROLOGIC: No focal neurological deficits. The patient is awake, alert and oriented and communicative, though somewhat dyspneic during the exam. LABORATORY: White count is 9,000 in the clinic. Other chemistries are pending. Urine is pending. Blood cultures are pending. Sputum culture is pending. RADIOLOGY: Chest x-ray performed by Dr. Diallo and interpreted by him reveal a left lower lobe infiltrative process suggesting an early pneumonia with close clinical followup suggested with vigorous treatment to be initiated. Repeat evaluation with a two view chest in the morning for maximum clarity and resolution. ASSESSMENT: 1. Acute left lower lobe infiltrate with radiograph in the clinic with the patient being ill now for almost 2 months requiring repeat hospitalization and clinic visit to get some degree of relief of her significant tightness in her breathing. 2. History of bronchial asthma with an acute exacerbation requiring pulmonary hygiene, bronchodilation and antiinflammatory treatment courses. She will also be given some corticosteroid inhalation therapies. 3. History of irritable bowel syndrome. 4. Chronic osteoarthritis with history of rheumatoid arthritis. 5. History of gastroesophageal reflux disease. 6. History of seasonal asthma. PLAN: The patient is admitted for medication nebulizers with Xopenex and Decadron 1 mg to be given twice daily for the next 2 days. Await blood cultures. Started on Levaquin and azithromycin antibiotics, different than the Rocephin that she received on last hospital stay. Will do some ambulation studies to check on oxygen requirements. Treat DVT prophylaxis with Lovenox and SCDs, and increasing activity level as possible. Repeat chest x-ray in the morning. Continue with Solu-Medrol 40 mg for the next 2 days twice daily, then change to prednisone. Await sputum cultures and blood culture results. Close followup and support in progress. Followup with Dr. Diallo when clinically stable at the time of discharge. #[id number] [facility]
[2017-11-08] MEDS ORDERED: IPRATROPIUM/ALBUTEROL 3 ML VIAL NEB ONE (14:38)
[2017-11-08] MEDS ORDERED: ACETAMINOPHEN 325 MG TAB PO PRN (14:52)
[2017-11-08] MEDS ORDERED: HYDROcodone 5MG/APAP 325MG 1 EA TAB PO PRN (14:52)
[2017-11-08] MEDS ORDERED: DEXAMETHASONE INJ 1 MG, SODIUM CHLORIDE 0.9% NEB 3 ML NEB SCH ×2 (15:30)
[2017-11-08] MEDS: FLUCONAZOLE 100 MG TAB PO SCH (15:32)
[2017-11-08] MEDS: AZITHROMYCIN 250 MG TAB PO SCH (15:32)
[2017-11-08] MEDS: methylPREDNISolone SODIUM SUC 40 MG/ML VIAL IV SCH ×2 (15:32→23:18)
[2017-11-08] MEDS: IV SET AND CAP CHANGE INJ INJ SCH (15:33)
[2017-11-08] MEDS: SODIUM CHLORIDE 0.9% 1000ML 1,000 ML IVS PRN (15:33)
[2017-11-08] MEDS ORDERED: DEXAMETHASONE INJ 4 MG/ML VIAL ONE (16:29)
[2017-11-08] MEDS: LEVALBUTEROL NEBS 1.25 MG/3 ML VIAL INH SCH (16:38)
[2017-11-08] MEDS: ENOXAPARIN SODIUM 40 MG/0.4 ML SYG SUBCU SCH (17:37)
[2017-11-08] MEDS ORDERED: CAFFEINE PO PRN (17:50)
[2017-11-08] MEDS ORDERED: ASPIRIN PO PRN (17:50)
[2017-11-08] MEDS ORDERED: BUTALBITAL PO PRN (17:50)
[2017-11-08] MEDS ORDERED: OMEPRAZOLE CAP 20 MG CAP ONE (19:03)
[2017-11-08] MEDS ORDERED: AMITRIPTYLINE HCL 25 MG TAB ONE (19:03)
[2017-11-08] MEDS ORDERED: PARoxetine HCL 20 MG TAB PO ONE (19:04)
[2017-11-08] MEDS ORDERED: CALCIUM CARBONATE (ANTACID) 500 MG CHEWABLE TAB PO PRN (20:25)
[2017-11-08] MEDS: traZODone HCL 100 MG TAB PO SCH (20:36)
[2017-11-08] MEDS: ALPRAZolam 0.5 MG TAB PO SCH (20:36)
[2017-11-08] MEDS ORDERED: NON-FORMULARY MEDICATION 1 EA MIS (Amitriptyline Hcl [Amitriptyline Hcl] 150 MG) PO SCH (21:00)
[2017-11-08] MEDS ORDERED: PAROXETINE HCL 40 MG PO SCH (21:00)
[2017-11-08] MEDS ORDERED: SUCRALFATE 1 GM TAB PO SCH (21:00)
[2017-11-08] MEDS: LEVALBUTEROL NEBS 1.25 MG/3 ML VIAL INH PRN (21:01)
[2017-11-08] MEDS ORDERED: levoFLOXacin 750MG IV 750 MG in PREMIX BAG 1 BAG IVPB ONE (22:00)
[2017-11-09] MEDS: LEVALBUTEROL NEBS 1.25 MG/3 ML VIAL INH SCH ×4 (00:34→23:05)
[2017-11-09] MEDS: SODIUM CHLORIDE 0.9% 1000ML 1,000 ML IVS PRN ×2 (04:15→18:03)
[2017-11-09] MEDS: OMEPRAZOLE CAP 20 MG CAP PO SCH (06:38)
--- NOTE | 2017-11-09 06:45 | RAD ---
Chest 2 view on 11/09/2017 CLINICAL INDICATION: Pneumonia COMPARISON: 10/27/2017 FINDINGS: Heart is upper limits normal for size. Hilar and mediastinal contours are within normal limits. Mild chronic interstitial changes are noted. The lungs are otherwise clear. IMPRESSION: No acute disease. Electronically signed by: Alfie Sosa 11/09/2017 6:43 AM CDT
[2017-11-09] MEDS ORDERED: SODIUM CHLORIDE 0.9% NEB 3 ML VIAL ONE ×3 (07:31→23:13)
[2017-11-09] MEDS ORDERED: DEXAMETHASONE INJ 4 MG/ML VIAL ONE ×3 (07:31→23:13)
[2017-11-09] MEDS: methylPREDNISolone SODIUM SUC 40 MG/ML VIAL IV SCH ×3 (07:42→23:47)
[2017-11-09] MEDS: DEXAMETHASONE INJ 1 MG, SODIUM CHLORIDE 0.9% NEB 3 ML NEB SCH ×4 (07:53→23:05)
[2017-11-09] MEDS: FLUTICASONE/SALMETEROL 250/50 14 PUFF/17 GM INH INH SCH ×4 (08:11→19:40)
[2017-11-09] MEDS ORDERED: predniSONE 20 MG TAB ONE (08:22)
[2017-11-09] MEDS ORDERED: SUCRALFATE 1 GM TAB PO ONE (08:22)
[2017-11-09] MEDS: ALPRAZolam 0.5 MG TAB PO SCH ×3 (08:37→21:00)
[2017-11-09] MEDS: POTASSIUM CHLORIDE 20 MEQ TAB PO SCH (08:37)
[2017-11-09] MEDS: FLUCONAZOLE 100 MG TAB PO SCH (08:37)
[2017-11-09] MEDS: FUROSEMIDE INJ 20 MG/2 ML VIAL IV SCH ×2 (08:38→16:57)
[2017-11-09] MEDS: ENOXAPARIN SODIUM 40 MG/0.4 ML SYG SUBCU SCH (08:39)
[2017-11-09] MEDS ORDERED: NON-FORMULARY MEDICATION 1 EA MIS (Potassium Chloride [Potassium Chloride Er] 10 MEQ) PO SCH (09:00)
[2017-11-09] MEDS: MAGNESIUM HYDROXIDE 30 ML UD PO PRN (09:04)
[2017-11-09] MEDS: SUCRALFATE 1 GM TAB PO SCH ×2 (11:05→16:57)
[2017-11-09] MEDS: LEVALBUTEROL NEBS 1.25 MG/3 ML VIAL INH PRN (13:15)
--- NOTE | 2017-11-09 13:22 | PN ---
DATE: 11/09/17 SUBJECTIVE: Today is the first day after admission to the hospital for a left lower lobe infiltrative pneumonia noted in the clinic of Dr. Diallo yesterday. She was started on antibiotics and pulmonary hygiene. In many ways, she says her breathing is better today. She has not been very active and is going to be encouraged to increase activity level as we reevaluate and await ambulation study results of her pulmonary functionality. Appetite is improving. Still somewhat weak. OBJECTIVE: VITAL SIGNS: Afebrile. Pulse 88. Blood pressure 123/77. Pulse oximetry up to 100% on 2 liters nasal cannula. Encouraged to decrease this to maintain saturations in the low 90s. LUNGS: Some clearing of some of the rales. HEART: Regular. ABDOMEN: Soft. LABORATORY: White count 7,200, 95% neutrophils, hemoglobin 11.8. Chemistries show potassium is up to 3.5, but sodium is down from 131 to 127. Decreased serum osmolality to 257 is noted. Influenza A/B negative. Blood cultures negative. Sputum culture requires further incubation and pending. Chest x-ray today shows no specific evidence of an infiltrative process as previously noted , possibly suggesting some clearing with continued followup and short-term treatment to continue. ASSESSMENT: 1. Acute left lower lobe pneumonia noted in outpatient clinic, probably community acquired with cultures negative, being treated with Levaquin and azithromycin, showing some clinical improvement and radiograph improvement as well. 2. Hyponatremia, possibly related to fairly significant free water overload with some sodium loss from hydrochlorothiazide administration chronically and with a history of polydipsia. Encouraged to decrease her fluid intake. 3. History of bronchial asthma with an acute exacerbation requiring pulmonary hygiene, bronchodilation and antiinflammatory administration including some corticosteroid inhalation treatments. 4. History of irritable bowel syndrome. 5. Chronic osteoarthritis with history of rheumatoid arthritis component. 6. History of gastroesophageal reflux disease. 7. History of seasonal asthma. PLAN: The patient will be encouraged to increase activity level. Await ambulation studies for provocative pulmonary functionality as well as requirements for oxygen if need be. Continue DVT prophylaxis. The patient placed on fluid restrictions and given some low dose loop diuretics in an effort to prevent further worsening of the hyponatremia. Increased activity encouraged. Reevaluation in the morning. #[id number] [facility]
[2017-11-09] MEDS: AZITHROMYCIN 250 MG TAB PO SCH (15:00)
[2017-11-09] MEDS ORDERED: levoFLOXacin 500MG IV 100 ML IVPB ONE (20:09)
[2017-11-09] MEDS ORDERED: AMITRIPTYLINE HCL 10 MG TAB ONE (20:25)
[2017-11-09] MEDS: AMITRIPTYLINE HCL 25 MG TAB PO SCH (21:00)
[2017-11-09] MEDS: PARoxetine HCL 20 MG TAB PO SCH (21:00)
[2017-11-09] MEDS: traZODone HCL 100 MG TAB PO SCH (21:00)
[2017-11-09] MEDS: levoFLOXacin 500MG IV 500 MG in PREMIX BAG 1 BAG IVPB SCH (22:25)
[2017-11-10] MEDS: LEVALBUTEROL NEBS 1.25 MG/3 ML VIAL INH PRN (05:34)
[2017-11-10] MEDS: SUCRALFATE 1 GM TAB PO SCH ×3 (06:04→17:07)
[2017-11-10] MEDS: OMEPRAZOLE CAP 20 MG CAP PO SCH (06:04)
[2017-11-10] MEDS: FLUCONAZOLE 100 MG TAB PO SCH (08:07)
[2017-11-10] MEDS: POTASSIUM CHLORIDE 20 MEQ TAB PO SCH (08:07)
[2017-11-10] MEDS: ALPRAZolam 0.5 MG TAB PO SCH ×3 (08:07→21:00)
[2017-11-10] MEDS: predniSONE 20 MG TAB PO SCH (08:07)
[2017-11-10] MEDS: ENOXAPARIN SODIUM 40 MG/0.4 ML SYG SUBCU SCH (08:08)
[2017-11-10] MEDS: FUROSEMIDE INJ 20 MG/2 ML VIAL IV SCH ×2 (08:08→17:07)
[2017-11-10] MEDS: SODIUM CHLORIDE 0.9% 1000ML 1,000 ML IVS PRN (08:22)
[2017-11-10] MEDS ORDERED: SODIUM CHLORIDE 0.9% NEB 3 ML VIAL ONE (08:33)
[2017-11-10] MEDS ORDERED: DEXAMETHASONE INJ 4 MG/ML VIAL ONE (08:33)
[2017-11-10] MEDS: FLUTICASONE/SALMETEROL 250/50 14 PUFF/17 GM INH INH SCH (08:46)
[2017-11-10] MEDS: LEVALBUTEROL NEBS 1.25 MG/3 ML VIAL INH SCH ×3 (08:46→23:08)
[2017-11-10] MEDS: DEXAMETHASONE INJ 1 MG, SODIUM CHLORIDE 0.9% NEB 3 ML NEB SCH ×2 (08:46)
[2017-11-10] MEDS ORDERED: predniSONE 20 MG TAB PO ONE (10:31)
[2017-11-10] MEDS: ARFORMOTEROL TARTRATE 15 MCG/2 ML NEB NEB SCH ×2 (10:51→20:19)
[2017-11-10] MEDS: AZITHROMYCIN 250 MG TAB PO SCH (15:12)
--- NOTE | 2017-11-10 16:24 | PN ---
DATE: [id number] SUPERVISING PHYSICIAN: Charles Hernández M.D. SUBJECTIVE: The patient continues to feel a little bit of shortness of breath today. She continues to feel weak but has been afebrile. OBJECTIVE: VITAL SIGNS: temperature 98.2, pulse 67, blood pressure 132/77, respirations 18, satting 100% on nasal cannula at rest on 2 liters. I's and O' s show a negative balance of 311 with 1989 in, 5100 out. Weight is 60.6 kg. CHEST: Lungs were clear to auscultation without any notable wheezing or rales. HEART: Regular rate and rhythm. ABDOMEN: Soft, non-tender. Positive bowel sounds. EXTREMITIES: No clubbing, cyanosis or edema. NEUROLOGIC: She is alert and oriented times three. LABORATORY: White count 9,000, hemoglobin 11.1, hematocrit 32.5, platelet count 290,000. Differential does show a continued left shift. Chemistries show normal electrolytes today with potassium 4.2, sodium is up to 138 from 127 , calcium 7.9, BUN 13, creatinine .58. MICROBIOLOGY: Sputum culture is pending. Blood culture is pending. RADIOLOGY: No additional radiographic studies were completed today. ASSESSMENT: 1. Acute left lower lobe pneumonia likely community acquired with sputum cultures pending with the patient being on Levaquin and azithromycin continuing to show some improvement. 2. Hyponatremia with questionable fluid overload with some sodium loss due to hydrochlorothiazide administration chronically as well as a history of polydipsia showing improvement with fluid restrictions and gentle diuresis on loop diuretic. 3. History of bronchial asthma with an acute exacerbation requiring pulmonary hygiene, bronchodilation and antiinflammatory administration including some corticosteroids. 4. History of irritable bowel syndrome. 5. Chronic osteoarthritis with history of rheumatoid arthritis component. 6. History of gastroesophageal reflux disease. 7. History of seasonal asthma. PLAN: Will continue with antibiotics today with Rocephin and azithromycin. Will go ahead and increase her prednisone to 40 mg p.o. today and modify her nebulizer treatments with Xopenex and Brovana as long-acting with note of holding the Advair. Will go ahead and provide some swish an swallow for possible concerns for thrush. Will anticipate at least another 24 hours of needed hospitalization until clinically stable and improved. Will continue to monitor and treat appropriately. #[id number] [facility]
[2017-11-10] MEDS: NYSTATIN SUSPENSION 5 ML UD MT SCH ×2 (17:07→21:00)
[2017-11-10] MEDS: SODIUM CHLORIDE 0.9% (FLUSH) 10 ML SYG IV PRN ×2 (17:10→22:25)
[2017-11-10] MEDS: MAGNESIUM HYDROXIDE 30 ML UD PO PRN (17:45)
[2017-11-10] MEDS ORDERED: levoFLOXacin 500MG IV 100 ML IVPB ONE (19:28)
[2017-11-10] MEDS: AMITRIPTYLINE HCL 25 MG TAB PO SCH (21:00)
[2017-11-10] MEDS: PARoxetine HCL 20 MG TAB PO SCH (21:00)
[2017-11-10] MEDS: traZODone HCL 100 MG TAB PO SCH (21:00)
[2017-11-10] MEDS: levoFLOXacin 500MG IV 500 MG in PREMIX BAG 1 BAG IVPB SCH (22:25)
[2017-11-11] MEDS: SUCRALFATE 1 GM TAB PO SCH ×3 (06:19→16:57)
[2017-11-11] MEDS: OMEPRAZOLE CAP 20 MG CAP PO SCH (06:19)
[2017-11-11] MEDS: ALPRAZolam 0.5 MG TAB PO SCH ×3 (08:09→20:30)
[2017-11-11] MEDS: FLUCONAZOLE 100 MG TAB PO SCH (08:09)
[2017-11-11] MEDS: FUROSEMIDE INJ 20 MG/2 ML VIAL IV SCH ×2 (08:09→16:53)
[2017-11-11] MEDS: POTASSIUM CHLORIDE 20 MEQ TAB PO SCH (08:09)
[2017-11-11] MEDS: NYSTATIN SUSPENSION 5 ML UD MT SCH ×4 (08:09→20:30)
[2017-11-11] MEDS: ENOXAPARIN SODIUM 40 MG/0.4 ML SYG SUBCU SCH (08:13)
[2017-11-11] MEDS: predniSONE 20 MG TAB PO SCH ×2 (08:15→09:07)
[2017-11-11] MEDS: SODIUM CHLORIDE 0.9% (FLUSH) 10 ML SYG IV PRN ×3 (08:17→21:48)
[2017-11-11] MEDS: ARFORMOTEROL TARTRATE 15 MCG/2 ML NEB NEB SCH ×2 (08:28→19:41)
[2017-11-11] MEDS: LEVALBUTEROL NEBS 1.25 MG/3 ML VIAL INH SCH ×2 (08:28→15:16)
[2017-11-11] MEDS ORDERED: predniSONE 20 MG TAB PO ONE (08:51)
[2017-11-11] MEDS: MONTELUKAST 10 MG TAB PO SCH (09:07)
[2017-11-11] MEDS: MAGNESIUM HYDROXIDE 30 ML UD PO PRN (13:17)
--- NOTE | 2017-11-11 13:55 | PN ---
DATE: 11/11/17 SUPERVISING PHYSICIAN: Charles Hernández MD SUBJECTIVE: The patient feels like she is able to take larger and deeper breaths today after starting Brovana. She notes she feels less oxygen deprived and less short of breath. She has actually been able to ambulate throughout the day. She has been afebrile. She has no complaints of nausea, vomiting or diarrhea. OBJECTIVE: VITAL SIGNS: Temperature 98.8, pulse 70, blood pressure 111/56, respiratory rate 16, saturation 98 to 100% on nasal cannula and room air at rest. I&O: Negative balance of 969 with 2031 in and 3000 out. Weight 60.2 kg. CHEST: Lung sounds are much improved today compared to previous but slightly diminished towards the bases bilaterally but no rhonchi, rales, or wheezes. HEART regular rate and rhythm. ABDOMEN soft, non-tender, positive bowel sound. EXTREMITIES: no cyanosis, clubbing, or edema. NEUROLOGIC: She is alert and oriented x 3.5. LABORATORY: No additional laboratory is repeated today as laboratory studies have been stable on previous days. RADIOLOGY: No additional radiographic studies available for review. ASSESSMENT: 1.. Acute left lower lobe pneumonia. community acquired with cultures still pending and the patient showing improvement after being on Levaquin and azithromycin.. 2. Hyponatremia, questionable due to fluid overload with sodium loss due to hydrochlorothiazide administration chronically as well as a history of polydipsia showing improvement with treatment. 3. History of bronchial asthma with acute exacerbation requiring pulmonary hygiene, bronchodilation and antiinflammatory administration and modification of medications as well as continuing corticosteroids. . 4. History of irritable bowel syndrome. 5. Chronic osteoarthritis with rheumatoid arthritis component. 6. History of gastroesophageal reflux disease. 7. History of seasonal allergies. PLAN: Will continue with antibiotics today to include Rocephin and azithromycin. Will continue with prednisone at 40 mg today additional 24 hours as well as modification of her nebulizer treatments with Xopenex and Brovana with the Brovana with a long acting component. Continue with systemic corticosteroids administration. I felt like she is not getting good delivery of the Advair at this point and has had some complications such as thrush which we are treating with Nystatin. On discharge. hopefully anticipation for tomorrow with consideration at discharge continue light therapy along with modification of her asthma maintenance to possibly include Spiriva and Brovana and p.r.n. Xadin. She has also been started on Singulair 10 mg daily to assist with decrease of the recurrence of her asthma exacerbation due to allergen reaction. Will again hopefully anticipate discharge tomorrow. Until then, continue to follow and treat appropriately. [facility][id number] [facility]
[2017-11-11] MEDS: IV SET AND CAP CHANGE INJ INJ SCH (15:20)
[2017-11-11] MEDS: AZITHROMYCIN 250 MG TAB PO SCH (15:20)
[2017-11-11] MEDS ORDERED: levoFLOXacin 500MG IV 100 ML IVPB ONE (19:41)
[2017-11-11] MEDS: AMITRIPTYLINE HCL 25 MG TAB PO SCH (20:30)
[2017-11-11] MEDS: PARoxetine HCL 20 MG TAB PO SCH (20:30)
[2017-11-11] MEDS: traZODone HCL 100 MG TAB PO SCH (20:30)
[2017-11-11] MEDS: levoFLOXacin 500MG IV 500 MG in PREMIX BAG 1 BAG IVPB SCH (21:48)
[2017-11-12] MEDS: LEVALBUTEROL NEBS 1.25 MG/3 ML VIAL INH SCH ×2 (00:40→08:20)
[2017-11-12] MEDS: OMEPRAZOLE CAP 20 MG CAP PO SCH (06:06)
[2017-11-12] MEDS: SUCRALFATE 1 GM TAB PO SCH ×2 (06:06→11:55)
[2017-11-12 06:13] VITALS: O2SAT 100
[2017-11-12] MEDS: POTASSIUM CHLORIDE 20 MEQ TAB PO SCH (07:12)
[2017-11-12] MEDS: ARFORMOTEROL TARTRATE 15 MCG/2 ML NEB NEB SCH (08:20)
[2017-11-12] MEDS ORDERED: SODIUM CHLORIDE 0.9% (FLUSH) 10 ML SYG IV SCH (09:00)
[2017-11-12] MEDS: FLUCONAZOLE 100 MG TAB PO SCH (09:10)
[2017-11-12] MEDS: FUROSEMIDE INJ 20 MG/2 ML VIAL IV SCH (09:11)
[2017-11-12] MEDS: ENOXAPARIN SODIUM 40 MG/0.4 ML SYG SUBCU SCH (09:12)
[2017-11-12] MEDS: NYSTATIN SUSPENSION 5 ML UD MT SCH (09:12)
[2017-11-12] MEDS: predniSONE 20 MG TAB PO SCH (09:13)
[2017-11-12] MEDS: ALPRAZolam 0.5 MG TAB PO SCH (09:14)
[2017-11-12] MEDS: MONTELUKAST 10 MG TAB PO SCH (09:14)
[2017-11-12 10:46] VITALS: BP 162/66; TEMP 97.1
[2017-11-12] MEDS: AZITHROMYCIN 250 MG TAB PO SCH (12:37)
--- NOTE | 2017-11-14 15:24 | DS ---
SUPERVISING PHYSICIAN: Blair Judge M.D. DISCHARGE DIAGNOSIS: 1. Acute left lower lobe pneumonia, community acquired showing improvement on Levaquin and azithromycin, complicated by high presence of yeast likely secondary from chronic corticosteroid use and Advair with the patient requiring the initiation of antifungal with Diflucan showing good response. 2. Hyponatremia, questionable due to fluid overload with sodium loss due to hydrochlorothiazide chronically used and history of polydipsia showing improvement with treatment. 3. History of bronchial asthma with acute exacerbation with acute left lower lobe pneumonia as noted in #1 requiring bronchodilators and antiinflammatory administration with the patient showing good response to treatment, 4. History of irritable bowel syndrome. 5. History of osteoarthritis with rheumatoid arthritis component. 6. History of gastroesophageal reflux disease. 7. History of seasonal allergies. REASON FOR HOSPITALIZATION: Ms. Hamlin is 67 year-old female patient admitted to the hospital as a direct admission from Dr. Diallo's office. She has been getting steadily sicker for the last 2 months and has required at least one hospital stay as well as several clinic visits because of shortness of breath an asthma symptoms. Her last serious episode of illness related to her lungs was over 4 years ago. She was most recently in the hospital and was discharged after 3 days about 10 days ago. Subsequently she has been followed- up with repeat treatments with antibiotics and steroid tapering doses with slight improvement noted, but then worsening symptoms again. She usually gets worse when she returns home. Her last hospitalization was noted October 26 until October 29 and required IV corticosteroids and antibiotics and bronchodilator treatments at which time she was returned home safely. She had documented hypoxia and required placing on home oxygen as well. She came back to the clinic on day of admission. Dr. Diallo ordered a chest x-ray which showed a left lower lobe infiltrate according to his interpretation and she was referred to the hospital for more vigorous treatment because of failed outpatient therapy. Her white count was fairly normal at 9,000. She is on home oxygen at 2 liters per minute. She had O2 saturations into the 80s when she ambulated on room air at her last hospital stay. No significant fever and chills. She has had some weight gain because of the corticosteroids. She has recently been in [facility] taking care of her mother and may have been exposed to other illnesses there while waiting in the waiting rooms. She generally feels very tight in her breathing and no longer wheezes, but still feels terrible with a yellowish sputum production. She is admitted to the hospital for further treatment and evaluation in stable condition. LABORATORY STUDIES: White count on admission was 7,200, at discharge was 9, 900. Hemoglobin and hematocrit were stable at 11.1 and 32.5 at sincerely with platelet count 290,000. Differential did show a left shift. Chemistries initially showed a hyponatremia with the lows being 127, potassium down to 3.5 with BUN 14, creatinine 0.66. Liver functions are all within normal limits as well as calcium 8.4. After initiation of treatment and prior to discharge, electrolytes had normalized with sodium 138, potassium 4.2, BUN 13, creatinine 0.58. Urinalysis showed to be within normal limits. MICROBIOLOGY: Sputum culture showed heavy growth of budding yeast. She had Influenza A and B swab that was both negative. She had 2 sets of blood cultures that remained negative after 5 days. RADIOLOGY: Chest x-ray after admission on the and per radiology interpretation showed no acute disease. HOSPITAL COURSE: Ms. Hamlin as admitted directly from Dr. Diallo's office as noted above for exacerbation of asthma and COPD. She was again started on bronchial hygiene treatments and chest physiotherapy and high dose corticosteroids with a slow taper. Modification of her asthma medications included changing from Advair to Brovana in conjunctive with Xopenex and systemic steroids. The patient had clinically shown good improvement, was maintaining O2 saturations at 100% on room air, and was felt clinically stable enough to be discharged. She had also had a course of antibiotics to include Rocephin, azithromycin and Levaquin. Given the yeast that was noted in her sputum, she was also started on Diflucan treatment which continued with the patient again showing good response to treatment plan. It was felt on the day of discharge the patient had clinically improved well enough to continue with outpatient treatment plan. PLAN: Ms. Hamlin was discharged on 11/12/17 with instructions to followup with Dr. Diallo as scheduled. She is to resume her home medications as previous to hospitalization and take medications as directed that were prescribed at discharge. Diet at discharge is to resume usual diet as tolerated. Activity is to increase as tolerated. New medications at discharge included: 1. Brovana 50 mcg nebulized twice a day, #8. 2. Nexium 20 mg daily, #30. 3. Diflucan 100 mg daily, #7. 4. Xopenex nebs 1.25 mg every 4 hours as needed, #30. 5. Xopenex 1.25 mg every 8 hours, #60. 6. Levaquin 500 mg daily for 10 days. 7. Singulair 10 mg daily, #30. 8. Prednisone taper 10 mg tablets with 40 mg for 3 days, 30 mg for 3 days, 20 mg for 3 days then continue 10 mg for a total of 100 tablets until seen in followup with Dr. Diallo. The patient was discharged in stable and improved condition. #[id number] [facility]
== END 2017-11-12 12:53 | disposition home or self-care (01) | DRG 194 ==
LOC: MS 13:50
PROVIDERS: ADMIT Emergency Medicine; ATTEND Nurse Practitioner Family
DX: J18.9 Pneumonia, unspecified organism (principal); E87.1 Hypo-osmolality and hyponatremia; J44.0 Chronic obstructive pulmonary disease with (acute) lower respiratory infection; J45.901 Unspecified asthma with (acute) exacerbation; Z79.52 Long term (current) use of systemic steroids; K58.9 Irritable bowel syndrome, unspecified; M06.9 Rheumatoid arthritis, unspecified; K21.9 Gastro-esophageal reflux disease without esophagitis

== ENCOUNTER → 2018-01-15 | Outpatient (CLI) | payer MEDICARE, OTHER | LOC: LAB.O 14:51 | PROVIDERS: ATTEND Nurse Practitioner Family | DX: M06.09 Rheumatoid arthritis without rheumatoid factor, multiple sites (principal); Z79.899 Other long term (current) drug therapy ==

== ENCOUNTER → 2018-06-28 | Outpatient (CLI) | payer MEDICARE, OTHER ==
--- NOTE | 2018-07-01 07:45 | RAD ---
EXAM DESCRIPTION: Shoulder,Right 2 or More Views (accession [id number]), Humerus,Right (accession [id number]) CLINICAL HISTORY: PN IN RIGHT ARM COMPARISON: None FINDINGS: 2 views of the right humerus with 4 views of the right shoulder. No acute fracture, dislocation or aggressive bone lesion is present. Moderate AC joint osteoarthritis. Cystic changes noted within the greater tuberosity may be iatrogenic and or result of chronic rotator cuff pathology. No advanced osteoarthritis of the glenohumeral joint. No acute fractures of the humerus. No aggressive bone lesions. Degenerative changes noted within the visualized cervical spine. IMPRESSION: No acute radiographic finding. Degenerative changes described above. Electronically signed by: Nikita Zamora MD 07/01/2018 7:44 AM [facility]
--- NOTE | 2018-07-01 07:45 | RAD ---
EXAM DESCRIPTION: Shoulder,Right 2 or More Views (accession [id number]), Humerus,Right (accession [id number]) CLINICAL HISTORY: PN IN RIGHT ARM COMPARISON: None FINDINGS: 2 views of the right humerus with 4 views of the right shoulder. No acute fracture, dislocation or aggressive bone lesion is present. Moderate AC joint osteoarthritis. Cystic changes noted within the greater tuberosity may be iatrogenic and or result of chronic rotator cuff pathology. No advanced osteoarthritis of the glenohumeral joint. No acute fractures of the humerus. No aggressive bone lesions. Degenerative changes noted within the visualized cervical spine. IMPRESSION: No acute radiographic finding. Degenerative changes described above. Electronically signed by: Nikita Zamora MD 07/01/2018 7:44 AM [facility]
--- NOTE | 2018-07-01 07:47 | RAD ---
EXAM DESCRIPTION: Elbow,Right 3 Views (accession [id number]), Forearm,Right (accession [id number]) CLINICAL HISTORY: PN IN RIGHT ARM COMPARISON: None FINDINGS: 3 views of the right elbow. 2 views of the right forearm. No acute fracture, dislocation or aggressive bone lesion is demonstrated within the forearm or the elbow. No joint hemarthrosis is demonstrated. Usual calcifications noted within the region of the lateral epicondyle commonly associated with the extensor calcific tendinosis and/or remote sequelae of trauma. Normal bone mineralization is seen. No soft tissue findings. Advanced osteoarthritis of the first carpometacarpal joint. IMPRESSION: No acute radiographic finding. Chronic findings described above. Electronically signed by: Nikita Zamora MD 07/01/2018 7:46 AM [facility]
--- NOTE | 2018-07-01 07:48 | RAD ---
EXAM DESCRIPTION: Elbow,Right 3 Views (accession [id number]), Forearm,Right (accession [id number]) CLINICAL HISTORY: PN IN RIGHT ARM COMPARISON: None FINDINGS: 3 views of the right elbow. 2 views of the right forearm. No acute fracture, dislocation or aggressive bone lesion is demonstrated within the forearm or the elbow. No joint hemarthrosis is demonstrated. Usual calcifications noted within the region of the lateral epicondyle commonly associated with the extensor calcific tendinosis and/or remote sequelae of trauma. Normal bone mineralization is seen. No soft tissue findings. Advanced osteoarthritis of the first carpometacarpal joint. IMPRESSION: No acute radiographic finding. Chronic findings described above. Electronically signed by: Nikita Zamora MD 07/01/2018 7:46 AM [facility]
== END ==
LOC: RAD 11:36
PROVIDERS: ATTEND Orthopaedic Surgery
DX: M79.601 Pain in right arm (principal)

== ENCOUNTER → 2018-07-08 | Outpatient (CLI) | payer MEDICARE, OTHER | LOC: GMAH 11:32 | PROVIDERS: ATTEND Family Medicine | DX: I10 Essential (primary) hypertension (principal); E78.00 Pure hypercholesterolemia, unspecified ==

== ENCOUNTER 2018-07-31 05:57 | Day surgery (SDC) | payer MEDICARE, OTHER ==
[2018-07-31] MEDS ORDERED: ceFAZolin SODIUM 1 GM VIAL ONE (06:17)
[2018-07-31] MEDS ORDERED: SODIUM CHL 0.9% 100ML MINI-BAG 100 ML IVPB ONE (06:17)
[2018-07-31] MEDS ORDERED: LACTATED RINGERS 1,000 ML ONE (06:17)
[2018-07-31] MEDS ORDERED: fentaNYL CITRATE INJ 50 MCG/ML AMP ONE (07:45)
[2018-07-31] MEDS ORDERED: MIDAZOLAM INJ 2 MG/2 ML VIAL ONE (07:45)
[2018-07-31] MEDS ORDERED: BUPIVACAINE 0.25% INJ 30 ML VIAL INJ ONE (08:35)
[2018-07-31] MEDS ORDERED: LIDOCAINE 1% 10 ML VIAL INJ ONE ×2 (08:36→10:00)
[2018-07-31] MEDS ORDERED: PROPOFOL 200 MG/20 ML VIAL IV ONE (10:00)
[2018-07-31] MEDS: ceFAZolin SODIUM 1 GM VIAL ONE ×2 (10:06→10:12)
[2018-07-31] MEDS: VANCOMYCIN HCL INJ 1,000 MG VIAL IVPB ONE ×2 (10:06→10:12)
[2018-07-31 11:27] VITALS: BP 148/68; TEMP 97.4; O2SAT 99
--- NOTE | 2018-08-01 13:36 | OP ---
DATE OF PROCEDURE: 07/31/18 PREOPERATIVE DIAGNOSIS: 1. Trigger thumb. POSTOPERATIVE DIAGNOSIS: 1. Trigger thumb. PROCEDURE: 1. A1 miranda release. SURGEON: Mauricio Gant MD. BRIDGE IRONWORKER: Adriel Banegas CST, SA-C. ANESTHESIA: Local with sedation. COMPLICATIONS: None. FINDINGS: Triggering at the A1 miranda of the thumb. INDICATION: Ms. Hamlin has a history of pain and clicking at the A1 miranda at the thumb. Ms. Hamlin had unfortunately been difficulty utilizing the thumb and we discussed options. After discussing the risks, benefits and alternatives to operative therapy, the patient has given informed consent. PROCEDURE: The patient was brought to the Operating Room and placed in the supine position. Sedation was administered and local anesthetic was injected into the operative area. Following injection, the arm was sterilely prepped and draped. A transverse incision was made directly overlying the A1 miranda of the triggering digit and blunt dissection was carried down to the miranda while protecting the digital nerves. After identification of the miranda, the miranda was transected and a [facility] elevator was passed both proximally and distally to ensure complete release. The finger was flexed and extended and there was no evidence of locking or clicking. The wound was thoroughly irrigated and closed with Nylon suture. A sterile dressing was placed and the patient was taken to the Day Surgery Unit. POSTOPERATIVE PLAN: The patient has been encouraged to do range of motion of the finger and will followup with us in two days. #[id number] [facility]
== END 2018-07-31 11:10 | disposition home or self-care (01) ==
LOC: AMB 05:57
PROVIDERS: ATTEND Orthopaedic Surgery
DX: M65.312 Trigger thumb, left thumb (principal); J44.9 Chronic obstructive pulmonary disease, unspecified; Z91.048 Other nonmedicinal substance allergy status; Z90.710 Acquired absence of both cervix and uterus; Z79.899 Other long term (current) drug therapy
CPT/HCPCS: 01810; 26055; J0690; J2250; J3010; J3370; J3490; J7050; J7120

== ENCOUNTER → 2018-12-05 | Outpatient (CLI) | payer MEDICARE, OTHER ==
--- NOTE | 2018-12-05 12:33 | CT ---
EXAM DESCRIPTION: Chest w/wo Contrast CLINICAL HISTORY: 68 years, Female, Other nonspecific abnormal finding of lung field COMPARISON: CT chest August 25, 2008 TECHNIQUE: Thin-section noncontrast axial CT images are obtained according to our protocol. Reconstructed MPR images are created and reviewed as well. Exam was performed before and after IV contrast administration. FINDINGS: Lungs: Patchy airspace infiltrate is seen in the posterior aspect of the apicoposterior segment left upper lobe. Tuberculosis infection or nontuberculous bacterial pneumonia could cause this appearance. Clinical correlation recommended. Mild biapical parenchymal scarring. Nodule in the posterior segment right upper lobe measures 5 mm and appears noncalcified. Smaller nodule more medially is subpleural and measures 3 mm near the same level Additional patchy infiltrate in the anterior segment left upper lobe has an appearance consistent with pneumonia. Minimal linear scarring in the lingula and right middle lobe. Faint groundglass infiltrate in the posterior segment right upper lobe. Follow-up chest x-ray or CT may be helpful to ensure complete clearance. Correlate TB skin test. Infiltrates and nodules are new compared to the previous study. Mediastinum: Lymph nodes are normal in size. Normal vascular contours. Heart size is normal with no pericardial effusion. Postcontrast images show normal enhancement of intrathoracic vessels and cardiac chambers. Chest wall/axilla: No mass or adenopathy. Breast tissue appears symmetrical. Lower neck/supraclavicular: No mass or adenopathy. Upper abdomen: Unremarkable upper abdominal viscera on pre and postcontrast images. Coronal and sagittal reformatted images confirm the findings. IMPRESSION: Bilateral pulmonary infiltrates consistent with pneumonia. See above. Small nodules in the right upper lobe probably granulomatous. Follow-up as per recommendations below. 2017 Fleischner Society Recommendations for Multiple Solid Lung Nodules Follow-Up base on size (average of long- and short-axis diameters). Use most suspicious nodule for followup. Nodule Size <6 mm Low-Risk Patient: No routine follow-up Nodule Size <6 mm High-Risk Patient: Optional CT at 12 months This exam was performed according to our departmental dose-optimization program, which includes automated exposure control, adjustment of the mA and/or kV according to patient size and/or use of iterative reconstruction technique. Total DLP equals 371.59 mGycm. Electronically signed by: Stephane Altamirano MD 12/05/2018 12:30 PM CDT
== END ==
LOC: CT 08:00
PROVIDERS: ATTEND Internal Medicine Rheumatology
DX: R91.8 Other nonspecific abnormal finding of lung field (principal)

== ENCOUNTER → 2019-03-25 | Outpatient (CLI) | payer MEDICARE, OTHER ==
--- NOTE | 2019-03-25 13:05 | MRI ---
EXAM DESCRIPTION: Lumbar Spine w/o Contrast : Magnetic Resonance Imaging. CLINICAL HISTORY: LOW BACK PAIN COMPARISON: Noncontrast MRI scan lumbar spine 05/27/2009. TECHNIQUE: Multiplanar, multiple standard sequences, non contrast MRI, lumbar spine. FINDINGS: L5-S1: Grade 1 anterolisthesis 5 mm. Moderate disc desiccation and disc space loss with calcification or air in the disc. Minimal posterior bulge. Advanced bilateral hypertrophic facet arthrosis with posterior flavum ligament thickening. AP canal diameter 10 mm. This has progressed since the prior study. Moderate to severe bilateral foraminal narrowing more on the left. Narrowing bilateral subarticular recesses has progressed since the prior study. Bilateral deformity of the L5 pars interarticulares consistent with spondylolysis. This has progressed on the right and is a new finding on the left since the prior study Diffuse loss of T1 signal in the left sacral ala, down to the S2-S3 level on T1 sequences. This corresponds to hyperintense inversion recovery signal on the sagittal image, consistent with marrow edema. L4-L5: Moderate disc space loss with disc desiccation. Grade 1 anterolisthesis 4 mm. Posterior disc bulge. Bilateral advanced hypertrophic facet arthrosis and ligament thickening more left than right. AP canal diameter 7 mm. Progressed since the prior study. Mild foraminal narrowing on the right and mild to moderate narrowing on the left. Sclerosis of the right L4 pars and spondylolysis of the left L4 pars; progressed since the prior study. Narrowing of the bilateral subarticular recesses stable since the prior study. L3-L4: Marked narrowing of the disc space centrally and to the left of midline with irregular endplates. 3 mm grade 1 retrolisthesis. Minimal posterior broad-based disc bulge midline and left of midline. Effacement of the left subarticular recess and impressing on the descending left L4 nerve. Moderate hypertrophic facet arthrosis and thickening of the ligaments. AP canal diameter 8 mm to the left of midline. No finding since the prior study. Left side disc osteophyte complex encroaching on the foramen and the left L3 nerve with moderate to severe foraminal narrowing. Moderate narrowing of the right foramen. L2-L3: Marked disc space loss with anterior endplate reactive changes also involving the right side. Anterior endplate ridging. Grade 1 retrolisthesis 2 mm. Bilateral hypertrophic facet arthrosis and ligament thickening with mild canal narrowing more on the left than right. Partial effacement of the left subarticular recess by the disc abutting the descending left L3 nerve. Mild left foraminal narrowing. Moderate to severe right foraminal narrowing. These findings have progressed since the prior study. L1-L2: Disc desiccation with disc space preserved. Hypertrophic facet arthrosis and flavum ligament thickening. Canal and bilateral foramina are patent. Conus terminates at this level. Stable since the prior study. T12-L1: Disc space maintained with disc desiccation. Schmorl's node inferior T12 endplate. No bulging. Posterior elements unremarkable. Canal and foramina are patent. Stable since the prior study. L2-L5 dextroscoliosis has increased since the prior study Paravertebral soft tissues paraspinal muscle atrophy.. Cord normal signal and caliber. Normal marrow signal in the remaining vertebral bodies and the posterior elements. Vertebral bodies are not compressed at any level. IMPRESSION: 1. Multiple levels of spondylosis, disc space loss, spondylolisthesis and spondylolysis with narrowing or stenosis of the canal and foramina, progressed since the prior study. 2. Abnormal marrow signal indicating edema which could be due to infiltration or trauma in the left S1 and S2 sacral ala but not the adjacent iliac bone. Correlate with clinical findings and history. Consider follow-up MRI scan of the pelvis and hips without and with IV contrast. 3. Grade 1 anterolisthesis L5-S1. Multifactorial borderline mild central canal stenosis. Narrowing of the bilateral subarticular recesses encroaching on the bilateral S1 nerves. Bilateral L5 pars interarticularis spondylolysis. Moderate to severe bilateral foraminal narrowing more on the left. 4. Grade 1 anterolisthesis L4-L5. Spondylolysis of the left L4 pars interarticularis. Multifactorial moderate central canal stenosis. Mild to moderate foraminal narrowing on the left. 5. Advanced spondylosis at L3-4 with mild to moderate canal stenosis at the left of midline, multifactorial. Left side spondylosis encroaching on the foramen. Effacement of the left subarticular recess possible compromise of the descending left L4 nerve. This is progressed since the prior study. 6. Grade 1 retrolisthesis at L2-L3. Right side spondylosis. Partial effacement of the left subarticular recess encroaching on the descending left L3 nerve. Moderate to severe right foraminal narrowing. Progressed since the prior study. Electronically signed by: Adriel Mae MD 03/25/2019 1:04 PM CDT
== END ==
LOC: MRI 08:00
PROVIDERS: ATTEND General Practice
DX: M47.896 Other spondylosis, lumbar region (principal); M43.16 Spondylolisthesis, lumbar region; M48.061 Spinal stenosis, lumbar region without neurogenic claudication

== ENCOUNTER → 2019-05-05 | Outpatient (CLI) | payer MEDICARE, OTHER ==
--- NOTE | 2019-05-05 16:55 | RAD ---
EXAM DESCRIPTION: Ankle,Left 3 Views CLINICAL HISTORY: 69 years Female, PAIN COMPARISON: None. Findings: Ankle mortise is symmetric. The talar dome is unremarkable. There is soft tissue swelling present about the left ankle. There is an irregular ossific fragment anterior to the talar neck, compatible with an avulsion fracture. The avulsed fragment measures approximately 6 mm. Calcaneal enthesophytes. IMPRESSION: Minimally displaced talar neck avulsion fracture. Electronically signed by: Hugo Cobian MD 05/05/2019 4:54 PM CDT
--- NOTE | 2019-05-05 16:56 | RAD ---
EXAM DESCRIPTION: Pelvis CLINICAL HISTORY: PAIN IN LEFT HIP COMPARISON: CT the abdomen and pelvis 2 28 August 2014 TECHNIQUE: AP pelvis FINDINGS: A large amount of stool is observed throughout the colon. Degenerative changes are seen in the pubic symphysis. The proximal femurs are intact. No fracturing is detected. Degenerative changes are observed in the lower lumbar spine. Injection granulomas are observed in the right buttocks. IMPRESSION: The hips are intact. No fracturing is detected. Electronically signed by: Erik Resendiz MD 05/05/2019 4:54 PM CDT
--- NOTE | 2019-05-05 16:57 | RAD ---
EXAM DESCRIPTION: Knee,Left Complete CLINICAL HISTORY: PAIN COMPARISON: None. TECHNIQUE: 4 views left FINDINGS: A left total knee arthroplasty is observed in place. A small joint effusion is seen. No evidence of loosening of the prosthesis is observed. No fracturing is detected. IMPRESSION: 1. Left total knee arthroplasty is observed. 2. A small joint effusion is seen. Electronically signed by: Erik Resendiz MD 05/05/2019 4:55 PM CDT
== END ==
LOC: RAD 09:13
PROVIDERS: ATTEND Orthopaedic Surgery
DX: S92.152A Displaced avulsion fracture (chip fracture) of left talus, initial encounter for closed fracture (principal); Z96.652 Presence of left artificial knee joint; M25.462 Effusion, left knee

== ENCOUNTER → 2019-05-08 | Outpatient (CLI) | payer MEDICARE, OTHER ==
--- NOTE | 2019-05-10 13:01 | MRI ---
Study: MRI of the Left Foot. MRI of the Left Ankle. Indication: Ankle pain Technique: Multiplanar, multi sequence MRI of the left foot and MRI of the left ankle were obtained without intravenous contrast. Comparison: Radiographs May 05, 2019. Findings: Subacute appearing cortical avulsion of the talar neck noted with a 7 mm avulsed cortical fragment slightly uplifted. Marked thickening of the dorsal talonavicular joint capsule. No additional fracture identified. Subcutaneous edema about the ankle. No acute fluid filled tear of the medial or lateral ankle ligaments. Ankle mortise alignment normal. Talar dome intact. Tiny tibiotalar and subtalar joint effusions. No talar coalition. Trace tenosynovitis medial tendons and peroneal tendons. Tendinosis and longitudinal split tearing of the peroneus brevis tendon noted posterior and inferior to the lateral malleolus without transection. Anterior tendons and Achilles tendon intact. Plantar fascia intact. Impression: Subacute avulsion of the talar neck at the dorsal aspect of the talonavicular joint as detailed above. Trace tenosynovitis medial tendons and peroneal tendons with tendinosis and longitudinal split tearing of the peroneus brevis tendon. No transection. Additional findings as above. Electronically signed by: Jonathan Garza MD 05/10/2019 12:59 PM CDT
== END ==
LOC: MRI 14:00
PROVIDERS: ATTEND Orthopaedic Surgery
DX: S92.152A Displaced avulsion fracture (chip fracture) of left talus, initial encounter for closed fracture (principal); S86.312A Strain of muscle(s) and tendon(s) of peroneal muscle group at lower leg level, left leg, initial encounter; M65.879 Other synovitis and tenosynovitis, unspecified ankle and foot

== ENCOUNTER → 2019-05-23 | Outpatient (CLI) | payer MEDICARE, OTHER | LOC: LAB.O 09:55 | PROVIDERS: ATTEND Internal Medicine | DX: J45.909 Unspecified asthma, uncomplicated (principal); J30.9 Allergic rhinitis, unspecified ==

== ENCOUNTER → 2019-06-19 | Outpatient (CLI) | payer MEDICARE, OTHER ==
--- NOTE | 2019-06-23 15:09 | MAM ---
EXAM DESCRIPTION: 3D Screening BILATERAL : Digital Mammography. CLINICAL HISTORY: 69 years Female ANNUAL SCREENING . No personal history or family history of breast cancer. No complaints. Markings 12. Childbirth. Postmenopausal 30+ years. HRT 5 or more years ago. Benign cyst aspiration right breast.. Lifetime risk of developing breast cancer (Tyrer-Cuzick model)(%): 5.1. COMPARISON: 2-D digital screening bilateral mammography. 27 March 2016. TECHNIQUE: Bilateral CC and MLO projection full-field images, digital tomosynthesis mammographic technique. Bilateral digital 2-D full-field MLO images. CAD not available for tomosynthesis or 2-D images. FINDINGS: The breast parenchymal density pattern is: Extremely dense breast tissue, which lowers the sensitivity of mammography. No skin thickening or nipple retraction. Bilateral solitary microcalcifications. New large calcification upper middle third left breast. Left breast skin mole. No new focal, stellate mass or density, focal asymmetry , and no suspicious microcalcifications bilaterally. IMPRESSION: Benign exam. BIRAD CATEGORY: 2 BENIGN FINDINGS. RECOMMENDATIONS: FOLLOW UP: Routine digital bilateral mammographic screening, one year interval from June 2019. Written communication explaining the IMPRESSION and follow-up, will be mailed to the patient and referring health care provider. According to the [employer], yearly mammograms are recommended starting at age 40 and continuing as long as a woman is in good health. Any breast change noted on a breast self-exam should be reported promptly to the patient's healthcare provider. Breast MRI is recommended for women with an approximately 20-25% or greater lifetime risk of breast cancer, including women with a strong family history of breast or ovarian cancer and women who have been treated for Hodgkin's disease. A negative mammographic report should not delay tissue diagnosis in patients with significant clinical history or physical findings. Extremely dense breast tissue limits the sensitivity of digital mammography. Electronically signed by: Adriel Mae MD 06/23/2019 3:08 PM [facility]
== END ==
LOC: MAMMO 09:00
PROVIDERS: ATTEND Family Medicine
DX: Z12.31 Encounter for screening mammogram for malignant neoplasm of breast (principal)

== ENCOUNTER → 2019-12-05 | Outpatient (CLI) | payer MEDICARE, OTHER | LOC: LAB.O 16:06 | PROVIDERS: ATTEND Internal Medicine Rheumatology | DX: M06.09 Rheumatoid arthritis without rheumatoid factor, multiple sites (principal); Z79.899 Other long term (current) drug therapy ==

== ENCOUNTER → 2020-02-09 | Outpatient (CLI) | payer MEDICARE, OTHER ==
--- NOTE | 2020-02-10 08:35 | RAD ---
EXAM DESCRIPTION: Shoulder,Right 2 or More Views CLINICAL HISTORY: PAIN IN RIGHT SHOULDER COMPARISON: Previous right shoulder x-ray series June 28, 2018 TECHNIQUE: Two views of the right shoulder. FINDINGS: There is adequate internal and external rotation. Normal alignment on transaxillary and transscapular Y views. There is no fracture or dislocation. Degenerative spurring at the AC joint. Cystic changes are seen in the humeral head and greater tuberosity with degenerative irregularity. Mild spurring at the medial humeral head neck junction. Mild spurring at the inferior glenoid. Cystic changes in the glenoid are more prominent than usually seen with subchondral tug injury and could be intraosseous geode or multiple surface cystic changes related to crystal arthropathy such as gout or HADD. Cystic findings appear to have progressed since the previous study. MRI may be helpful. IMPRESSION: Negative for fracture or dislocation. Cystic changes in the humeral head and greater tuberosity. See above. Electronically signed by: Stephane Altamirano MD 02/10/2020 8:34 AM CDT
== END ==
LOC: RAD 09:36
PROVIDERS: ATTEND Orthopaedic Surgery
DX: M25.511 Pain in right shoulder (principal); M85.611 Other cyst of bone, right shoulder

== ENCOUNTER → 2020-03-24 | Outpatient (CLI) | payer MEDICARE, OTHER | LOC: LAB.O 14:54 | PROVIDERS: ATTEND Internal Medicine Rheumatology | DX: M06.09 Rheumatoid arthritis without rheumatoid factor, multiple sites (principal); Z79.899 Other long term (current) drug therapy ==

== ENCOUNTER → 2020-05-10 | Outpatient (CLI) | payer MEDICARE, OTHER | LOC: GMA MATASK 11:14 | PROVIDERS: ATTEND Family Medicine | DX: R41.9 Unspecified symptoms and signs involving cognitive functions and awareness (principal) ==

== ENCOUNTER → 2020-05-12 | Outpatient (CLI) | payer MEDICARE, OTHER ==
--- NOTE | 2020-05-13 07:41 | MRI ---
EXAM DESCRIPTION: Brain w/oContrast CLINICAL HISTORY: UNSPECIFIED SYMPTOMS AND SIGNS INVOLVING COGNITIVE FUNCTIONS. Memory loss. COMPARISON: CT head 07/02/2016. TECHNIQUE: Non contrast MRI of the brain is with multiplanar multi sequence technique. FINDINGS: BRAIN PARENCHYMA: No evidence of acute or chronic intracranial infarct. No intracranial hemorrhage. No mass effect or herniation. Minimal punctate white matter T2 hyperintensities are within normal limits for age. There is no significant white matter microangiopathic changes. The brain volume is normal without focal atrophy or encephalomalacia. VENTRICLES/EXTRA-AXIAL SPACES: No hydrocephalus or extra-axial fluid collections. FLOW VOIDS: Intact. SINUSES/MASTOIDS: Small right mastoid effusion. The remainder of the visualized paranasal sinuses and left mastoid air cells are clear. OTHER EXTRACRANIAL STRUCTURES: Unremarkable. IMPRESSION: 1. Normal brain MRI. No evidence of acute or chronic intracranial infarct or focal structural abnormality. 2. Small right mastoid effusion. Electronically signed by: Tapan Drummond DO 05/13/2020 7:39 AM CDT
== END ==
LOC: MRI 08:09
PROVIDERS: ATTEND Family Medicine
DX: R41.9 Unspecified symptoms and signs involving cognitive functions and awareness (principal); H74.8X1 Other specified disorders of right middle ear and mastoid

== ENCOUNTER → 2020-06-29 | Outpatient (CLI) | payer MEDICARE, OTHER | LOC: GMA MATASK 10:46 | PROVIDERS: ATTEND Family Medicine | DX: I10 Essential (primary) hypertension (principal) ==